=== PATIENT | female | born 1935 | race Caucasian/White ===

== ENCOUNTER 2017-02-18 10:53 | Inpatient (IN) | payer MEDICARE, BC ==
[~2017-02-18] VITALS: Ht 147.3 cm; Wt 54.7 kg
[~2017-02-18 10:53] MED LIST: ALBUAER3 IN; ASPI-498 PO; CHOL20009 PO; DILT120C20 PO; HYDR25TA4 PO; IPRASOL41 NEB; LATA0.0015 OP; NEBI5TAB2 PO; NITR0.4S29 SL; OYST500T29 PO; PERCOT PO; POT10T PO; PRE1T PO; PROP150T20 PO; RANI150I IJ; TEMA15CA PO; [UNRECOGNIZED DRUG - CODE] PO
[2017-02-18 11:37] LABS: Basophils # (auto) 0.1 uL; Basophils % (auto) 1.1 % (0.0-2.0); Eosinophils # (auto) 0.1 uL; Eosinophils % (auto) 1.5 % (0.0-7.0); Hematocrit 34.9 % (36.0-46.0); Hemoglobin 11.3 g/dL (12.2-16.2); Lymphocytes # (auto) 2.1 uL; Lymphocytes % (auto) 22.6 % (10.0-50.0); Mean Corpuscular Hemoglobin 30.8 pg (28.0-32.0); Mean Corpuscular Hgb Conc. 32.5 g/dL (32.0-36.0); Mean Corpuscular Volume 94.8 fL (80.0-100.0); Monocytes # (auto) 1.2 uL; Monocytes % (auto) 12.3 % (0.0-12.0); Neutrophils # (auto) 5.9 uL; Neutrophils % (auto) 62.5 % (37.0-80.0); Platelet Count (auto) 295 10^3/uL (140-450); Red Blood Cells 3.68 10^6/uL (4.0-5.20); Red Cell Distribution Width 13.7 % (11.8-14.3); White Blood Cell 9.5 10^3/uL (4.4-10.8)
[2017-02-18 11:50] LABS: INR 1.42 (0.9-1.15); Partial Thromboplastin Time 51.6 sec (22.64-33.71); Prothrombin Time 15.5 sec (9.37-12.3)
[2017-02-18 11:51] LABS: Alanine Aminotransferase 13 U/L (13-56); Anion Gap 8 (5-15); Aspartate Aminotransferase 11 U/L (15-37); BUN/Creatinine Ratio 15.8; Blood Urea Nitrogen 16 mg/dL (7-18); Calcium 8.9 mg/dL (8.5-10.1); Carbon Dioxide 31 mmol/L (21-32); Chloride 103 mmol/L (98-107); GFR African American 67 mL/min; GFR Non-African American 56 mL/min; Glucose 114 mg/dL (74-106); Magnesium 1.7 mg/dL (1.6-2.6); Potassium 3.6 mmol/L (3.5-5.1); Sodium 142 mmol/L (136-145)
[2017-02-18 11:56] LABS: Alkaline Phosphatase 55 U/L (45-117); Bilirubin, Total 0.5 mg/dL (0.2-1.0); Total Protein 6.5 g/dL (6.4-8.2)
[2017-02-18] MEDS ORDERED: MORPHINE SULFATE 10 MG/ML INJ 1ML SDV IV PRN (12:45)
[2017-02-18] MEDS ORDERED: OXYCODONE W/ ACETAMINOPHEN 5/325MG TABLET PO PRN (12:45)
[2017-02-18] MEDS ORDERED: DEXTROSE (50%) 50ML SYRG IV PRN (12:45)
[2017-02-18] MEDS ORDERED: LACTULOSE 20Gm/30ML SOLN PO PRN (12:45)
[2017-02-18] MEDS ORDERED: NITROGLYCERIN 0.4 MG SL TAB SL PRN (12:45)
[2017-02-18] MEDS ORDERED: ALBUTEROL SULF 2.5 MG/0.5ML(0.5%) NEB SOLN NEB PRN (12:45)
[2017-02-18] MEDS ORDERED: PANTOPRAZOLE 40 MG TAB PO SCH (12:57)
[2017-02-18] MEDS: POTASSIUM CHL 20 Meq TABLET PO SCH (13:08)
[2017-02-18] MEDS: NITROGLYCERIN 0.2MG/HR TOPICAL PATCH TD SCH (13:10)
[2017-02-18] MEDS ORDERED: DRON400T PO (13:27)
[2017-02-18] MEDS ORDERED: PRE5T PO (13:30)
[2017-02-18 14:00] VITALS: BP 154/78
[2017-02-18] MEDS ORDERED: PROPAFENONE HCL 150 MG TAB PO SCH (14:00)
[2017-02-18] MEDS ORDERED: methylPREDNISolone SOD SUCC 40 MG/ML VL IV ONE (14:00)
[2017-02-18] MEDS: cefTRIAXone 1GM/50ML D5W 50 ML IV SCH (14:03)
[2017-02-18] MEDS: AZITHROMYCIN 500MG/ 250ML 250 ML IV SCH (14:57)
[2017-02-18] MEDS ORDERED: METF-370 PO (15:23)
[2017-02-18] MEDS ORDERED: BRIN1SUS EACHEYE (15:23)
[2017-02-18] MEDS ORDERED: RIVA20TA PO (15:23)
[2017-02-18] MEDS ORDERED: LORazepam 2MG/ML-1ML VIAL IV PRN (16:30)
[2017-02-18 16:55] LABS: Cholesterol 178 mg/dL (< 200); HDL Cholesterol 47 mg/dL (40-59); LDL Cholesterol 113 mg/dL (< 100); Triglycerides 237 mg/dL (< 150)
[2017-02-18 17:00] VITALS: BP 149/80
[2017-02-18] MEDS: InsuLIN REG 1unit/0.01ml Soln (100units/ml) SC SCH ×2 (18:10→22:44)
[2017-02-18] MEDS: ACCU-CHEK COMFORT CURVE STRIP VI SCH ×2 (18:10→22:29)
[2017-02-18] MEDS: LATANOPROST 0.005 % OPTH(EYE) SOL 2.5ML EACHEYE SCH (18:11)
[2017-02-18] MEDS: RIVAROXABAN 15 MG TAB PO SCH (18:21)
[2017-02-18] MEDS: IPRATROPIUM BROM 0.5 MG/2.5ML INH SOL NEB SCH (18:26)
[2017-02-18] MEDS: ALBUTEROL SULF 2.5 MG/0.5ML(0.5%) NEB SOLN NEB SCH (18:26)
[2017-02-18] MEDS: DILTIAZEM HCL 120MG ER CAP PO SCH (18:28)
[2017-02-18] MEDS ORDERED: CARVEDILOL 3.125 MG TAB PO SCH (22:00)
[2017-02-18] MEDS ORDERED: DRONEDARONE HCL 400 MG TAB PO SCH (22:00)
[2017-02-18] MEDS ORDERED: ATORVASTATIN 20 MG TAB PO SCH (22:00)
[2017-02-18] MEDS: methylPREDNISolone SOD SUCC 40 MG/ML VL IV SCH (22:29)
[2017-02-18] MEDS: DRONEDARONE HCL 400 MG TAB PO SCH (22:30)
[2017-02-18 22:43] VITALS: BP 137/79
[2017-02-19] MEDS: ALBUTEROL SULF 2.5 MG/0.5ML(0.5%) NEB SOLN NEB SCH ×4 (00:18→18:52)
[2017-02-19] MEDS: IPRATROPIUM BROM 0.5 MG/2.5ML INH SOL NEB SCH ×4 (00:18→18:52)
[2017-02-19] MEDS: ACETAMINOPHEN 500 MG TAB PO PRN ×2 (05:26→11:22)
[2017-02-19 05:50] VITALS: BP 146/88
[2017-02-19] MEDS: ACCU-CHEK COMFORT CURVE STRIP VI SCH ×4 (06:10→22:16)
[2017-02-19] MEDS: HCTZ 25 MG TAB PO SCH (06:10)
[2017-02-19] MEDS: InsuLIN REG 1unit/0.01ml Soln (100units/ml) SC SCH ×4 (06:39→23:08)
[2017-02-19] MEDS ORDERED: RANITIDINE HCL 150 MG PO SCH (07:00)
[2017-02-19 09:00] VITALS: BP 99/63
[2017-02-19] MEDS ORDERED: FUROSEMIDE 40 MG/4 ML VIAL IV SCH (10:00)
[2017-02-19] MEDS: ASPirin 81 mg TAB PO SCH (10:00)
[2017-02-19] MEDS: NITROGLYCERIN 0.2MG/HR TOPICAL PATCH TD SCH (10:00)
[2017-02-19] MEDS: methylPREDNISolone SOD SUCC 40 MG/ML VL IV SCH ×2 (10:00→22:16)
[2017-02-19] MEDS: ENALAPRIL MALEATE 2.5 MG TAB PO SCH (10:00)
[2017-02-19] MEDS ORDERED: NEBIVOLOL HCL 5 MG PO SCH (10:00)
[2017-02-19] MEDS ORDERED: predniSONE 1 MG TAB PO SCH (10:00)
[2017-02-19] MEDS: cefTRIAXone 1GM/50ML D5W 50 ML IV SCH (10:52)
[2017-02-19] MEDS: AZITHROMYCIN 500MG/ 250ML 250 ML IV SCH (10:56)
[2017-02-19] MEDS: PANTOPRAZOLE 40 MG TAB PO SCH (11:00)
[2017-02-19] MEDS: POTASSIUM CHL 20 Meq TABLET PO SCH (11:00)
[2017-02-19] MEDS: CHOLECALCIFEROL (VITD3) 1,000 UNIT TAB PO SCH (11:01)
[2017-02-19] MEDS: CALCIUM CARB 500 MG CHEW TAB PO SCH (11:01)
[2017-02-19] MEDS: predniSONE 5 MG TAB PO SCH (11:02)
[2017-02-19] MEDS: DRONEDARONE HCL 400 MG TAB PO SCH (11:13)
[2017-02-19 13:00] VITALS: BP 142/77
[2017-02-19] MEDS ORDERED: ASPirin 81 mg TAB PO ONE (14:30)
[2017-02-19] MEDS ORDERED: methylPREDNISolone SOD SUCC 40 MG/ML VL IV ONE (14:30)
[2017-02-19 17:57] VITALS: BP 135/78
[2017-02-19] MEDS: DILTIAZEM HCL 120MG ER CAP PO SCH (17:59)
[2017-02-19] MEDS: RIVAROXABAN 15 MG TAB PO SCH (17:59)
[2017-02-19] MEDS: LATANOPROST 0.005 % OPTH(EYE) SOL 2.5ML EACHEYE SCH (18:00)
[2017-02-19 22:00] VITALS: BP 129/73
[2017-02-19] MEDS: RYTHMOL 150 MG PO SCH (22:24)
[2017-02-19] MEDS: TEMAZEPAM 15 MG CAP PO PRN (23:08)
[2017-02-20] MEDS: ALBUTEROL SULF 2.5 MG/0.5ML(0.5%) NEB SOLN NEB SCH ×2 (01:15→06:38)
[2017-02-20] MEDS: IPRATROPIUM BROM 0.5 MG/2.5ML INH SOL NEB SCH ×4 (01:15→20:02)
[2017-02-20 05:00] VITALS: BP 144/72
[2017-02-20] MEDS: RYTHMOL 150 MG PO SCH (06:01)
[2017-02-20] MEDS: ACCU-CHEK COMFORT CURVE STRIP VI SCH ×4 (06:02→22:19)
[2017-02-20] MEDS: InsuLIN REG 1unit/0.01ml Soln (100units/ml) SC SCH ×2 (06:02→11:30)
[2017-02-20] MEDS: HCTZ 25 MG TAB PO SCH (06:03)
[2017-02-20 06:23] LABS: Basophils # (auto) 0 uL; Basophils % (auto) 0.2 % (0.0-2.0); Eosinophils # (auto) 0 uL; Hematocrit 33.8 % (36.0-46.0); Hemoglobin 11.2 g/dL (12.2-16.2); Lymphocytes # (auto) 0.7 uL; Mean Corpuscular Volume 93.9 fL (80.0-100.0); Monocytes # (auto) 0.2 uL; Monocytes % (auto) 1.5 % (0.0-12.0); Neutrophils % (auto) 91.3 % (37.0-80.0); Platelet Count (auto) 313 10^3/uL (140-450); Red Cell Distribution Width 13.4 % (11.8-14.3); White Blood Cell 9.9 10^3/uL (4.4-10.8)
[2017-02-20 06:35] LABS: Calcium 9.2 mg/dL (8.5-10.1); Potassium 4.1 mmol/L (3.5-5.1)
[2017-02-20 06:38] LABS: Bilirubin, Total 0.3 mg/dL (0.2-1.0); Total Protein 6.4 g/dL (6.4-8.2)
[2017-02-20 08:10] VITALS: BP 136/83
[2017-02-20 09:00] VITALS: BP 136/83
[2017-02-20] MEDS: cefTRIAXone 1GM/50ML D5W 50 ML IV SCH (09:54)
[2017-02-20] MEDS: CALCIUM CARB 500 MG CHEW TAB PO SCH (09:59)
[2017-02-20] MEDS: CHOLECALCIFEROL (VITD3) 1,000 UNIT TAB PO SCH (09:59)
[2017-02-20] MEDS: POTASSIUM CHL 20 Meq TABLET PO SCH (10:00)
[2017-02-20] MEDS: ENALAPRIL MALEATE 2.5 MG TAB PO SCH (10:00)
[2017-02-20] MEDS: methylPREDNISolone SOD SUCC 40 MG/ML VL IV SCH (10:00)
[2017-02-20] MEDS: ASPirin 81 mg TAB PO SCH (10:01)
[2017-02-20] MEDS: PANTOPRAZOLE 40 MG TAB PO SCH (10:22)
[2017-02-20] MEDS: predniSONE 5 MG TAB PO SCH (10:22)
[2017-02-20 11:21] LABS: Urine Bacteria NONE SEEN /hpf (None Seen); Urine Blood Negative /uL (Negative); Urine Specific Gravity 1.016 (1.001-1.035); Urine WBC 4 /hpf (0 - 5)
[2017-02-20 11:28] LABS: Folate (Folic Acid) > 24.00 ng/mL (5.38-24)
[2017-02-20] MEDS: metFORMIN HYDROCHLORIDE 500 MG TAB PO SCH (12:56)
[2017-02-20] MEDS: NEBIVOLOL HCL 5 MG PO SCH (12:57)
[2017-02-20] MEDS: PROPAFENONE HCL 150 MG TAB PO SCH ×2 (14:31→22:19)
[2017-02-20 17:00] VITALS: BP 126/76
[2017-02-20] MEDS ORDERED: SODIUM CHLORIDE 0.9% 1,000 ML IV SCH (17:30)
[2017-02-20] MEDS ORDERED: LORazepam 2MG/ML-1ML VIAL IV PRN (17:45)
[2017-02-20] MEDS: LATANOPROST 0.005 % OPTH(EYE) SOL 2.5ML EACHEYE SCH (18:22)
[2017-02-20] MEDS: DILTIAZEM HCL 120MG ER CAP PO SCH (18:24)
[2017-02-20] MEDS: RIVAROXABAN 15 MG TAB PO SCH (18:24)
[2017-02-20 20:00] VITALS: BP 158/78
[2017-02-20 21:30] VITALS: BP 158/78
[2017-02-20] MEDS: TEMAZEPAM 15 MG CAP PO PRN (22:19)
[2017-02-21] VITALS (8 sets, daily range): BP systolic 127–156; BP diastolic 62–76
[2017-02-21] MEDS: IPRATROPIUM BROM 0.5 MG/2.5ML INH SOL NEB SCH ×4 (01:01→18:34)
[2017-02-21] MEDS: HCTZ 25 MG TAB PO SCH (06:12)
[2017-02-21] MEDS: PROPAFENONE HCL 150 MG TAB PO SCH ×3 (06:12→21:51)
[2017-02-21] MEDS: ACCU-CHEK COMFORT CURVE STRIP VI SCH ×4 (06:31→21:51)
[2017-02-21] MEDS: cefTRIAXone 1GM/50ML D5W 50 ML IV SCH (09:49)
[2017-02-21] MEDS: NEBIVOLOL HCL 5 MG PO SCH (10:00)
[2017-02-21] MEDS: ENALAPRIL MALEATE 2.5 MG TAB PO SCH (10:00)
[2017-02-21] MEDS: POTASSIUM CHL 20 Meq TABLET PO SCH (11:16)
[2017-02-21] MEDS: CHOLECALCIFEROL (VITD3) 1,000 UNIT TAB PO SCH (11:16)
[2017-02-21] MEDS: metFORMIN HYDROCHLORIDE 500 MG TAB PO SCH (11:17)
[2017-02-21] MEDS: CALCIUM CARB 500 MG CHEW TAB PO SCH (11:18)
[2017-02-21] MEDS: PANTOPRAZOLE 40 MG TAB PO SCH (11:19)
[2017-02-21] MEDS: predniSONE 5 MG TAB PO SCH (11:19)
[2017-02-21] MEDS: LATANOPROST 0.005 % OPTH(EYE) SOL 2.5ML EACHEYE SCH (19:21)
[2017-02-21] MEDS: DILTIAZEM HCL 120MG ER CAP PO SCH (19:22)
[2017-02-21] MEDS: RIVAROXABAN 15 MG TAB PO SCH (19:23)
[2017-02-21] MEDS ORDERED: ATORVASTATIN 20 MG TAB PO SCH (22:00)
[2017-02-21] MEDS: TEMAZEPAM 15 MG CAP PO PRN (22:57)
[2017-02-22] MEDS: IPRATROPIUM BROM 0.5 MG/2.5ML INH SOL NEB SCH ×3 (00:18→12:00)
[2017-02-22 05:17] VITALS: BP 151/81
[2017-02-22] MEDS: ACCU-CHEK COMFORT CURVE STRIP VI SCH ×3 (06:24→17:00)
[2017-02-22] MEDS: HCTZ 25 MG TAB PO SCH (06:24)
[2017-02-22] MEDS: PROPAFENONE HCL 150 MG TAB PO SCH ×2 (06:24→17:56)
[2017-02-22] MEDS ORDERED: FLUMAZENIL 0.1 MG/ML INJ 10ML MDV IV ONE (07:24)
[2017-02-22] MEDS ORDERED: MIDAZOLAM HCL 1MG/1ML-2 ML VIAL ONE (07:24)
[2017-02-22] MEDS ORDERED: fentaNYL CITRATE 100 MCG/2 ML VL ONE (07:24)
[2017-02-22] MEDS ORDERED: NALOXONE HCL 0.4 MG/ML VIAL ONE (07:24)
[2017-02-22] MEDS ORDERED: MIDAZOLAM HCL 1MG/1ML-2 ML VIAL IV ONE (07:45)
[2017-02-22] MEDS ORDERED: LIDOCAINE VISCOUS 2% 15ML UD MT ONE (07:45)
[2017-02-22] MEDS ORDERED: fentaNYL CITRATE 100 MCG/2 ML VL IV ONE (07:45)
[2017-02-22] MEDS ORDERED: BENZOCAINE (DENTAL) 20 % SPRAY 60ML MT ONE ×4 (07:45→10:00)
[2017-02-22] MEDS ORDERED: LIDOCAINE VISCOUS 2% 15ML UD ONE (08:00)
[2017-02-22 08:30] VITALS: BP 157/81
[2017-02-22] MEDS: ENALAPRIL MALEATE 2.5 MG TAB PO SCH (10:00)
[2017-02-22] MEDS ORDERED: ONDANSETRON HCL 4 MG/2 ML VIAL ONE (10:26)
[2017-02-22] MEDS ORDERED: ONDANSETRON HCL 4 MG/2 ML VIAL IV ONE (10:30)
[2017-02-22] MEDS: cefTRIAXone 1GM/50ML D5W 50 ML IV SCH (12:37)
[2017-02-22] MEDS: predniSONE 5 MG TAB PO SCH (12:39)
[2017-02-22] MEDS: CALCIUM CARB 500 MG CHEW TAB PO SCH (12:39)
[2017-02-22] MEDS: PANTOPRAZOLE 40 MG TAB PO SCH (12:39)
[2017-02-22] MEDS: metFORMIN HYDROCHLORIDE 500 MG TAB PO SCH (12:40)
[2017-02-22] MEDS: POTASSIUM CHL 20 Meq TABLET PO SCH (12:41)
[2017-02-22] MEDS: CHOLECALCIFEROL (VITD3) 1,000 UNIT TAB PO SCH (12:41)
[2017-02-22] MEDS: NEBIVOLOL HCL 5 MG PO SCH (12:46)
[2017-02-22 13:09] VITALS: BP 166/79
[2017-02-22 17:00] VITALS: BP 156/76
[2017-02-22 17:34] VITALS: BP 156/76
[2017-02-22] MEDS: LATANOPROST 0.005 % OPTH(EYE) SOL 2.5ML EACHEYE SCH (17:54)
[2017-02-22] MEDS: RIVAROXABAN 15 MG TAB PO SCH (17:55)
[2017-02-22] MEDS: DILTIAZEM HCL 120MG ER CAP PO SCH (17:55)
== END 2017-02-22 19:41 | disposition home or self-care (01) | DRG 64 ==
LOC: ER 10:53 → TELE 10:54 → TELE-CENTR 13:56
PROVIDERS: ADMIT Internal Medicine; ATTEND Internal Medicine
PROC: B24BZZ4 Ultrasonography of Heart with Aorta, Transesophageal (ICD-10-PCS; principal; 2017-02-22)
DX: I63.9 Cerebral infarction, unspecified (principal); I50.33 Acute on chronic diastolic (congestive) heart failure; J96.10 Chronic respiratory failure, unspecified whether with hypoxia or hypercapnia; D68.69 Other thrombophilia; E11.22 Type 2 diabetes mellitus with diabetic chronic kidney disease; N18.3 Chronic kidney disease, stage 3 (moderate); G81.94 Hemiplegia, unspecified affecting left nondominant side; I07.1 Rheumatic tricuspid insufficiency; J44.1 Chronic obstructive pulmonary disease with (acute) exacerbation; I13.0 Hypertensive heart and chronic kidney disease with heart failure and stage 1 through stage 4 chronic kidney disease, or unspecified chronic kidney disease; I48.0 Paroxysmal atrial fibrillation; M31.5 Giant cell arteritis with polymyalgia rheumatica; D63.8 Anemia in other chronic diseases classified elsewhere; R25.1 Tremor, unspecified; R27.0 Ataxia, unspecified; I11.0 Hypertensive heart disease with heart failure; E78.5 Hyperlipidemia, unspecified; I25.10 Atherosclerotic heart disease of native coronary artery without angina pectoris; I34.0 Nonrheumatic mitral (valve) insufficiency; I35.1 Nonrheumatic aortic (valve) insufficiency; I83.90 Asymptomatic varicose veins of unspecified lower extremity; I16.0 Hypertensive urgency; R70.0 Elevated erythrocyte sedimentation rate; R79.82 Elevated C-reactive protein (CRP); R29.810 Facial weakness; R47.81 Slurred speech; M54.30 Sciatica, unspecified side; Z79.01 Long term (current) use of anticoagulants; Z80.0 Family history of malignant neoplasm of digestive organs; Z80.3 Family history of malignant neoplasm of breast; Z85.038 Personal history of other malignant neoplasm of large intestine; Z85.828 Personal history of other malignant neoplasm of skin; Z95.5 Presence of coronary angioplasty implant and graft; Z88.1 Allergy status to other antibiotic agents; Z88.2 Allergy status to sulfonamides; Z88.8 Allergy status to other drugs, medicaments and biological substances; Z90.49 Acquired absence of other specified parts of digestive tract; Z90.710 Acquired absence of both cervix and uterus; Z87.891 Personal history of nicotine dependence; Z86.73 Personal history of transient ischemic attack (TIA), and cerebral infarction without residual deficits
CPT/HCPCS: 36415; 70450; 70551; 71010; 80053; 80061; 81001; 82550; 82607; 82746; 82962; 83036; 83735; 83880; 84443; 84484; 85025; 85610; 85652; 85730; 86141; 93005; 93306; 93312; 93886; 94640; 97116; 97163; 97530; 99152; 99153; J0696; J1815; J2250; J2405

== ENCOUNTER 2017-04-25 16:23 | Inpatient (IN) | payer MEDICARE, OTHER ==
[~2017-04-25] VITALS: Ht 147.3 cm; Wt 50.8 kg
[~2017-04-25 16:23] MED LIST changes: -ASPI-498 PO; +BRIN1SUS EACHEYE; +METF-370 PO; -NEBI5TAB2 PO; -PERCOT PO; -PRE1T PO; +PRE5T PO; -PROP150T20 PO; +PROP1CAP PO; +RANI150C11 PO; -RANI150I IJ; +RIVA20TA PO
[2017-04-25 17:06] VITALS: BP 133/74
[2017-04-25] MEDS ORDERED: ONDANSETRON HCL 4 MG/2 ML VIAL IV PRN (18:00)
[2017-04-25] MEDS ORDERED: cefTRIAXone 1GM/10ml IVPUSH 10 ML IV ONE (18:00)
[2017-04-25] MEDS ORDERED: MORPHINE SULF INJ 2 MG/ML SYRINGE 1ML IV PRN (18:00)
[2017-04-25] MEDS ORDERED: ALBUTEROL SULF 2.5 MG/0.5ML(0.5%) NEB SOLN NEB PRN (18:00)
[2017-04-25] MEDS: predniSONE 5 MG TAB PO ONE ×2 (18:38→18:41)
[2017-04-25] MEDS: SODIUM CHLORIDE 0.9% 1,000 ML IV SCH (18:38)
[2017-04-25] MEDS: HYDROcodone-ACET 5/325MG TAB PO PRN (18:41)
[2017-04-25 18:58] LABS: Basophils # (auto) 0.1 uL; Basophils % (auto) 0.7 % (0.0-2.0); Eosinophils # (auto) 0 uL; Eosinophils % (auto) 0.1 % (0.0-7.0); Hematocrit 34.7 % (36.0-46.0); Hemoglobin 10.9 g/dL (12.2-16.2); Lymphocytes # (auto) 1.7 uL; Lymphocytes % (auto) 14.8 % (10.0-50.0); Mean Corpuscular Hemoglobin 30.3 pg (28.0-32.0); Mean Corpuscular Hgb Conc. 31.4 g/dL (32.0-36.0); Mean Corpuscular Volume 96.7 fL (80.0-100.0); Monocytes # (auto) 0.7 uL; Monocytes % (auto) 6.3 % (0.0-12.0); Neutrophils # (auto) 9.1 uL; Neutrophils % (auto) 78.1 % (37.0-80.0); Platelet Count (auto) 346 10^3/uL (140-450); Red Blood Cells 3.59 10^6/uL (4.0-5.20); Red Cell Distribution Width 15.3 % (11.8-14.3); White Blood Cell 11.7 10^3/uL (4.4-10.8)
[2017-04-25] MEDS ORDERED: ASPI81TA27 PO (19:00)
[2017-04-25 19:10] LABS: INR 0.98 (0.9-1.15); Partial Thromboplastin Time 25.2 sec (22.64-33.71); Prothrombin Time 10.7 sec (9.37-12.3)
[2017-04-25 19:27] LABS: Bilirubin, Total 0.3 mg/dL (0.2-1.0); Calcium 9.1 mg/dL (8.5-10.1); Potassium 3.7 mmol/L (3.5-5.1)
[2017-04-25 19:28] LABS: Albumin 3.2 g/dL (3.4-5.0); Total Protein 6.2 g/dL (6.4-8.2)
[2017-04-25 20:00] VITALS: BP 152/84
[2017-04-25] MEDS: FAMOTIDINE 20 MG TAB PO SCH (21:23)
[2017-04-25] MEDS: LATANOPROST 0.005 % OPTH(EYE) SOL 2.5ML EACHEYE SCH (21:23)
[2017-04-25] MEDS: AZOPT OP SCH (21:24)
[2017-04-25] MEDS: PROPAFENONE 150 MG PO SCH (21:25)
[2017-04-25] MEDS: TEMAZEPAM 15 MG CAP PO PRN (21:27)
[2017-04-25] MEDS: CLINDAMYCIN 600MG IV 50 ML IV SCH (21:29)
[2017-04-25 22:00] VITALS: BP 152/84
[2017-04-26 05:00] VITALS: BP 144/76
[2017-04-26] MEDS: CLINDAMYCIN 600MG IV 50 ML IV SCH ×3 (05:30→21:32)
[2017-04-26] MEDS: PROPAFENONE 150 MG PO SCH ×3 (05:31→21:32)
[2017-04-26] MEDS: AZOPT OP SCH ×4 (05:31→22:00)
[2017-04-26 07:23] LABS: Urine Bacteria NONE SEEN /hpf (None Seen); Urine Blood Negative /uL (Negative); Urine Hyaline Cast FEW /lpf (0 - 2); Urine Mucus FEW (None Seen); Urine Specific Gravity 1.023 (1.001-1.035); Urine WBC 3 /hpf (0 - 5)
[2017-04-26 08:00] VITALS: BP 110/59
[2017-04-26] MEDS: predniSONE 5 MG TAB PO SCH (09:41)
[2017-04-26] MEDS: cefTRIAXone 1GM/10ml IVPUSH 10 ML IV SCH (09:41)
[2017-04-26] MEDS: FAMOTIDINE 20 MG TAB PO SCH ×2 (09:41→21:32)
[2017-04-26] MEDS ORDERED: NALOXONE HCL 0.4 MG/ML VIAL IV PRN (10:30)
[2017-04-26] MEDS ORDERED: ONDANSETRON HCL 4 MG/2 ML VIAL IV ONE (10:30)
[2017-04-26] MEDS ORDERED: HYDROmorphone HCL 2 MG/ML VL IV PRN (10:30)
[2017-04-26] MEDS ORDERED: LIDOCAINE 1% HCL (LOCAL ANESTH.) INJ 20ML MDV ONE (10:34)
[2017-04-26] MEDS: SODIUM CHLORIDE 0.9% 1,000 ML IV SCH (10:40)
[2017-04-26] MEDS ORDERED: MIDAZOLAM HCL 1MG/1ML-2 ML VIAL ONE (10:40)
[2017-04-26] MEDS ORDERED: METOCLOPRAMIDE HCL 5MG/ml INJ 2ml VIAL ONE (10:41)
[2017-04-26] MEDS ORDERED: LIDOCAINE HCL 2 %PF INJ 10ML AMP IJ ONE (10:45)
[2017-04-26] MEDS ORDERED: PROPOFOL 10 MG/ML 20 ML IV ONE (10:45)
[2017-04-26] MEDS ORDERED: fentaNYL CITRATE 100 MCG/2 ML VL ONE (10:50)
[2017-04-26] MEDS ORDERED: KETAMINE HCL 1 ML ONE (10:55)
[2017-04-26] MEDS ORDERED: HYDROCORTISONE SOD SUCC 100 MG/2ML INJ VIAL ONE (10:57)
[2017-04-26 16:54] VITALS: BP 105/55
[2017-04-26] MEDS: LATANOPROST 0.005 % OPTH(EYE) SOL 2.5ML EACHEYE SCH ×2 (20:00→21:46)
[2017-04-26 20:52] VITALS: BP 105/58
[2017-04-26] MEDS: TEMAZEPAM 15 MG CAP PO PRN (21:46)
[2017-04-26 22:00] VITALS: BP 126/70
[2017-04-26] MEDS ORDERED: MEGESTROL ACETATE 20 MG TAB PO SCH (22:00)
[2017-04-27] MEDS: SODIUM CHLORIDE 0.9% 1,000 ML IV SCH ×2 (03:20→20:00)
[2017-04-27 04:59] VITALS: BP 138/81
[2017-04-27] MEDS: CLINDAMYCIN 600MG IV 50 ML IV SCH ×3 (06:25→21:02)
[2017-04-27] MEDS: PROPAFENONE 150 MG PO SCH ×3 (06:25→21:04)
[2017-04-27] MEDS: AZOPT OP SCH ×2 (06:25→14:20)
[2017-04-27] MEDS: cefTRIAXone 1GM/10ml IVPUSH 10 ML IV SCH (08:38)
[2017-04-27 09:00] VITALS: BP 150/80
[2017-04-27] MEDS: FAMOTIDINE 20 MG TAB PO SCH ×2 (09:52→21:02)
[2017-04-27] MEDS: predniSONE 5 MG TAB PO SCH (09:52)
[2017-04-27 13:00] VITALS: BP 153/78
[2017-04-27 17:00] VITALS: BP 145/80
[2017-04-27] MEDS: HYDROcodone-ACET 5/325MG TAB PO PRN (21:02)
[2017-04-27] MEDS: TEMAZEPAM 15 MG CAP PO PRN (21:03)
[2017-04-27 22:19] VITALS: BP 163/95
[2017-04-28] MEDS: AZOPT OP SCH ×3 (04:27→21:46)
[2017-04-28] MEDS: CLINDAMYCIN 600MG IV 50 ML IV SCH ×3 (04:27→21:46)
[2017-04-28] MEDS: PROPAFENONE 150 MG PO SCH ×3 (04:28→21:46)
[2017-04-28 05:00] VITALS: BP 156/77
[2017-04-28 08:00] VITALS: BP 144/77
[2017-04-28 09:00] VITALS: BP 144/77
[2017-04-28] MEDS: predniSONE 5 MG TAB PO SCH (09:18)
[2017-04-28] MEDS: FAMOTIDINE 20 MG TAB PO SCH ×2 (09:18→21:46)
[2017-04-28] MEDS: cefTRIAXone 1GM/10ml IVPUSH 10 ML IV SCH (09:18)
[2017-04-28] MEDS: SODIUM CHLORIDE 0.9% 1,000 ML IV SCH (12:40)
[2017-04-28 13:00] VITALS: BP 171/84
[2017-04-28 17:00] VITALS: BP 146/86
[2017-04-28] MEDS: LATANOPROST 0.005 % OPTH(EYE) SOL 2.5ML EACHEYE SCH (21:45)
[2017-04-28] MEDS: TEMAZEPAM 15 MG CAP PO PRN (21:47)
[2017-04-28 22:00] VITALS: BP 144/77
[2017-04-29] VITALS (8 sets, daily range): BP systolic 133–174; BP diastolic 70–82
[2017-04-29] MEDS: SODIUM CHLORIDE 0.9% 1,000 ML IV SCH ×2 (04:58→22:00)
[2017-04-29] MEDS: AZOPT OP SCH ×3 (05:03→22:00)
[2017-04-29] MEDS: PROPAFENONE 150 MG PO SCH ×3 (05:03→22:17)
[2017-04-29] MEDS: CLINDAMYCIN 600MG IV 50 ML IV SCH (05:03)
[2017-04-29] MEDS: HYDROcodone-ACET 5/325MG TAB PO PRN (05:04)
[2017-04-29] MEDS: FAMOTIDINE 20 MG TAB PO SCH ×2 (09:22→22:17)
[2017-04-29] MEDS: cefTRIAXone 1GM/10ml IVPUSH 10 ML IV SCH (09:22)
[2017-04-29] MEDS: predniSONE 5 MG TAB PO SCH (09:22)
[2017-04-29] MEDS: AMOXICILLIN TRIHYDRATE 250 MG CAP PO SCH ×2 (16:33→22:17)
[2017-04-29] MEDS: TEMAZEPAM 15 MG CAP PO PRN (22:17)
[2017-04-29] MEDS: LATANOPROST 0.005 % OPTH(EYE) SOL 2.5ML EACHEYE SCH (22:17)
[2017-04-30] MEDS: AZOPT OP SCH ×3 (05:44→22:00)
[2017-04-30] MEDS: PROPAFENONE 150 MG PO SCH ×3 (05:44→22:00)
[2017-04-30 06:00] VITALS: BP_SYST 136; BP_SYST 157; BP_DIAS 75; BP_DIAS 85
[2017-04-30 09:00] VITALS: BP 123/76
[2017-04-30] MEDS: AMOXICILLIN TRIHYDRATE 250 MG CAP PO SCH ×2 (10:25→22:08)
[2017-04-30] MEDS: cefTRIAXone 1GM/10ml IVPUSH 10 ML IV SCH (10:25)
[2017-04-30] MEDS: FAMOTIDINE 20 MG TAB PO SCH ×2 (10:26→22:08)
[2017-04-30] MEDS: predniSONE 5 MG TAB PO SCH (10:26)
[2017-04-30 13:00] VITALS: BP 148/81
[2017-04-30] MEDS: SODIUM CHLORIDE 0.9% 1,000 ML IV SCH (15:19)
[2017-04-30 16:43] VITALS: BP 137/73
[2017-04-30 20:00] VITALS: BP 144/71
[2017-04-30] MEDS: LATANOPROST 0.005 % OPTH(EYE) SOL 2.5ML EACHEYE SCH (22:00)
[2017-04-30 22:04] VITALS: BP_SYST 139; BP_SYST 144; BP_DIAS 71; BP_DIAS 74
[2017-04-30] MEDS: TEMAZEPAM 15 MG CAP PO PRN (22:08)
[2017-05-01] VITALS (7 sets, daily range): BP systolic 127–160; BP diastolic 71–88
[2017-05-01] MEDS: AZOPT OP SCH ×4 (05:52→22:08)
[2017-05-01] MEDS: PROPAFENONE 150 MG PO SCH ×3 (06:00→21:42)
[2017-05-01] MEDS: cefTRIAXone 1GM/10ml IVPUSH 10 ML IV SCH (09:38)
[2017-05-01] MEDS: SODIUM CHLORIDE 0.9% 1,000 ML IV SCH ×2 (09:46→23:45)
[2017-05-01] MEDS: HYDROcodone-ACET 5/325MG TAB PO PRN ×2 (09:47→17:47)
[2017-05-01] MEDS: AMOXICILLIN TRIHYDRATE 250 MG CAP PO SCH ×2 (09:47→21:42)
[2017-05-01] MEDS: FAMOTIDINE 20 MG TAB PO SCH ×2 (09:47→21:42)
[2017-05-01] MEDS: predniSONE 5 MG TAB PO SCH (09:47)
[2017-05-01 13:32] LABS: Basophils # (auto) 0 uL; Basophils % (auto) 0.4 % (0.0-2.0); Eosinophils # (auto) 0 uL; Eosinophils % (auto) 0.2 % (0.0-7.0); Hematocrit 31.9 % (36.0-46.0); Hemoglobin 10.2 g/dL (12.2-16.2); Lymphocytes # (auto) 1.2 uL; Lymphocytes % (auto) 10.8 % (10.0-50.0); Mean Corpuscular Hemoglobin 30.6 pg (28.0-32.0); Mean Corpuscular Volume 95.7 fL (80.0-100.0); Monocytes % (auto) 9.4 % (0.0-12.0); Neutrophils # (auto) 8.6 uL; Neutrophils % (auto) 79.2 % (37.0-80.0); Platelet Count (auto) 233 10^3/uL (140-450); Red Blood Cells 3.34 10^6/uL (4.0-5.20); Red Cell Distribution Width 14.9 % (11.8-14.3); White Blood Cell 10.8 10^3/uL (4.4-10.8)
[2017-05-01 13:43] LABS: Potassium 3.1 mmol/L (3.5-5.1)
[2017-05-01 13:45] LABS: BUN/Creatinine Ratio 15.4; Calcium 8.7 mg/dL (8.5-10.1)
[2017-05-01] MEDS: TEMAZEPAM 15 MG CAP PO PRN (21:43)
[2017-05-01] MEDS: LATANOPROST 0.005 % OPTH(EYE) SOL 2.5ML EACHEYE SCH (22:08)
[2017-05-02 05:00] VITALS: BP 147/83
[2017-05-02] MEDS: AZOPT OP SCH ×2 (06:00→15:03)
[2017-05-02] MEDS: PROPAFENONE 150 MG PO SCH ×2 (06:02→14:53)
[2017-05-02 07:55] VITALS: BP 143/66
[2017-05-02] MEDS: predniSONE 5 MG TAB PO SCH (10:35)
[2017-05-02] MEDS: AMOXICILLIN TRIHYDRATE 250 MG CAP PO SCH (10:35)
[2017-05-02] MEDS: FAMOTIDINE 20 MG TAB PO SCH (10:35)
[2017-05-02 11:06] VITALS: BP 143/78
[2017-05-02 12:00] VITALS: BP 143/72
[2017-05-02 14:38] VITALS: BP 143/72
[2017-05-02] MEDS: SODIUM CHLORIDE 0.9% 1,000 ML IV SCH (15:03)
[2017-05-02 17:00] VITALS: BP 160/82
== END 2017-05-02 18:35 | disposition home health service (06) | DRG 574 ==
LOC: EAST 16:23
PROVIDERS: ADMIT Internal Medicine; ATTEND Internal Medicine
PROC: 0JDN0ZZ Extraction of Right Lower Leg Subcutaneous Tissue and Fascia, Open Approach (ICD-10-PCS; 2017-04-26)
PROC: 0HRKXK3 Replacement of Right Lower Leg Skin with Nonautologous Tissue Substitute, Full Thickness, External Approach (ICD-10-PCS; principal; 2017-04-26 10:42)
DX: L97.219 Non-pressure chronic ulcer of right calf with unspecified severity (principal); J96.10 Chronic respiratory failure, unspecified whether with hypoxia or hypercapnia; E11.22 Type 2 diabetes mellitus with diabetic chronic kidney disease; I13.0 Hypertensive heart and chronic kidney disease with heart failure and stage 1 through stage 4 chronic kidney disease, or unspecified chronic kidney disease; I50.32 Chronic diastolic (congestive) heart failure; E11.622 Type 2 diabetes mellitus with other skin ulcer; I48.91 Unspecified atrial fibrillation; J44.9 Chronic obstructive pulmonary disease, unspecified; M31.6 Other giant cell arteritis; N18.3 Chronic kidney disease, stage 3 (moderate); Z86.73 Personal history of transient ischemic attack (TIA), and cerebral infarction without residual deficits; Z88.1 Allergy status to other antibiotic agents
CPT/HCPCS: 36415; 80048; 80053; 81001; 82962; 85025; 85610; 85730; 87077; 87081; 87186; 87205; 93005; J2001; J2250; J2704; J3490; Q4131

== ENCOUNTER 2017-05-09 16:52 | Inpatient (IN) | payer MEDICARE, BC ==
[~2017-05-09] VITALS: Ht 148.6 cm; Wt 47.8 kg
[~2017-05-09 16:52] MED LIST changes: +ASPI81TA27 PO; -RIVA20TA PO
[2017-05-09 17:31] VITALS: BP 149/82
[2017-05-09] MEDS ORDERED: HYDROcodone-ACET 5/325MG TAB PO PRN (18:30)
[2017-05-09] MEDS ORDERED: ONDANSETRON HCL 4 MG/2 ML VIAL IV PRN (18:30)
[2017-05-09] MEDS ORDERED: DOCUSATE SOD 100 MG CAP PO PRN (18:30)
[2017-05-09] MEDS ORDERED: MORPHINE SULFATE 10 MG/ML INJ 1ML SDV IV PRN ×2 (18:30)
[2017-05-09] MEDS ORDERED: NITROGLYCERIN 0.4 MG SL TAB SL PRN (18:30)
[2017-05-09] MEDS ORDERED: ACETAMINOPHEN 325 MG TAB PO PRN (18:30)
[2017-05-09] MEDS ORDERED: DEXTROSE (50%) 50ML SYRG IV PRN (18:45)
[2017-05-09] MEDS ORDERED: DILTIAZEM HCL 120MG ER CAP PO ONE (19:15)
[2017-05-09] MEDS ORDERED: ASPirin-EC 81 mg tab PO ONE (19:15)
[2017-05-09 19:16] LABS: Hematocrit 34.4 % (36.0-46.0); Hemoglobin 10.8 g/dL (12.2-16.2); Mean Corpuscular Hemoglobin 29.5 pg (28.0-32.0); Mean Corpuscular Hgb Conc. 31.4 g/dL (32.0-36.0); Platelet Count (auto) 422 10^3/uL (140-450); Red Blood Cells 3.66 10^6/uL (4.0-5.20); White Blood Cell 7.6 10^3/uL (4.4-10.8)
[2017-05-09 19:18] LABS: Basophils % (manual) 0 (0.0-2.0); Blast Cells 0; Eosinophils % (manual) 0 (0-7); Metamyelocytes % 0; Myelocytes % 0; Promyelocytes % 0
[2017-05-09 19:24] VITALS: BP 149/82
[2017-05-09 19:33] LABS: Alanine Aminotransferase 12 U/L (13-56); Albumin 2.8 g/dL (3.4-5.0); Anion Gap 8 (5-15); Aspartate Aminotransferase 10 U/L (15-37); Blood Urea Nitrogen 10 mg/dL (7-18); Calcium 9.1 mg/dL (8.5-10.1); Carbon Dioxide 34 mmol/L (21-32); Chloride 94 mmol/L (98-107); GFR African American 76 mL/min; GFR Non-African American 63 mL/min; Glucose 133 mg/dL (74-106); Potassium 3.9 mmol/L (3.5-5.1); Sodium 136 mmol/L (136-145)
[2017-05-09 19:38] LABS: Alkaline Phosphatase 68 U/L (45-117); Bilirubin, Total 0.2 mg/dL (0.2-1.0); Total Protein 6.5 g/dL (6.4-8.2)
[2017-05-09 20:31] LABS: Band Neutrophils % (manual) 2; Lymphocytes % (manual) 23 (10.0-50.0); Monocytes % (manual) 7 (0-12)
[2017-05-09 20:32] LABS: Reactive Lymphocytes 2
[2017-05-09] MEDS: ACCU-CHEK COMFORT CURVE STRIP VI SCH (21:44)
[2017-05-09] MEDS: InsuLIN REG 1unit/0.01ml Soln (100units/ml) SC SCH (21:44)
[2017-05-09] MEDS: PROPAFENONE HCL 150 MG TAB PO SCH (21:53)
[2017-05-09] MEDS: FAMOTIDINE 20 MG TAB PO SCH (21:55)
[2017-05-09] MEDS: ASCORBIC ACID 500 MG TAB PO SCH (21:55)
[2017-05-09] MEDS: TEMAZEPAM 15 MG CAP PO PRN (21:55)
[2017-05-09] MEDS: CALCIUM CARB 500 MG CHEW TAB PO SCH (21:55)
[2017-05-09 22:00] VITALS: BP 137/72
[2017-05-09] MEDS: SODIUM CHLOR 0.9% PF (SALINE LOCK) 10ML VIAL IV SCH (22:00)
[2017-05-09] MEDS: AZOPT 1% OP SCH (22:00)
[2017-05-09] MEDS: LATANOPROST 0.005 % OPTH(EYE) SOL 2.5ML EACHEYE SCH (22:00)
[2017-05-09] MEDS: EYE OP SCH (22:00)
[2017-05-09 22:43] LABS: Urine Bacteria NONE SEEN /hpf (None Seen); Urine Blood Negative /uL (Negative); Urine Hyaline Cast FEW /lpf (0 - 2); Urine Mucus FEW (None Seen); Urine Specific Gravity 1.017 (1.001-1.035); Urine WBC 3 /hpf (0 - 5)
[2017-05-10] MEDS: IPRATROPIUM BROM 0.5 MG/2.5ML INH SOL NEB SCH ×4 (00:52→19:25)
[2017-05-10] MEDS: ALBUTEROL SULF 2.5 MG/0.5ML(0.5%) NEB SOLN NEB SCH ×4 (00:53→19:25)
[2017-05-10] MEDS: AZOPT 1% OP SCH ×3 (05:10→22:00)
[2017-05-10] MEDS: EYE OP SCH ×3 (05:10→22:00)
[2017-05-10 05:44] VITALS: BP 135/63
[2017-05-10] MEDS: ACCU-CHEK COMFORT CURVE STRIP VI SCH ×4 (06:06→22:00)
[2017-05-10] MEDS: InsuLIN REG 1unit/0.01ml Soln (100units/ml) SC SCH ×4 (06:06→22:00)
[2017-05-10] MEDS: PROPAFENONE HCL 150 MG TAB PO SCH ×3 (06:07→22:01)
[2017-05-10 06:30] LABS: Hematocrit 32.5 % (36.0-46.0); Hemoglobin 10.5 g/dL (12.2-16.2); Mean Corpuscular Hemoglobin 30.3 pg (28.0-32.0); Mean Corpuscular Hgb Conc. 32.3 g/dL (32.0-36.0); Mean Corpuscular Volume 93.8 fL (80.0-100.0); Platelet Count (auto) 435 10^3/uL (140-450); Red Blood Cells 3.47 10^6/uL (4.0-5.20); Red Cell Distribution Width 14.7 % (11.8-14.3); White Blood Cell 7.6 10^3/uL (4.4-10.8)
[2017-05-10 06:53] LABS: Albumin 2.8 g/dL (3.4-5.0); BUN/Creatinine Ratio 11.3; Band Neutrophils % (manual) 0; Basophils % (manual) 0 (0.0-2.0); Bilirubin, Total 0.3 mg/dL (0.2-1.0); Blast Cells 0; Metamyelocytes % 0; Myelocytes % 0; Potassium 3.2 mmol/L (3.5-5.1); Promyelocytes % 0; Reactive Lymphocytes 0; Total Protein 6.3 g/dL (6.4-8.2)
[2017-05-10] MEDS ORDERED: IOHEXOL 350 MG/ML 100ML IJ ONE (06:54)
[2017-05-10 08:00] VITALS: BP 150/61
[2017-05-10] MEDS: SODIUM CHLOR 0.9% PF (SALINE LOCK) 10ML VIAL IV SCH ×3 (08:22→22:02)
[2017-05-10 09:44] VITALS: BP 135/63
[2017-05-10] MEDS: CALCIUM CARB 500 MG CHEW TAB PO SCH ×2 (10:00→22:01)
[2017-05-10] MEDS: PANTOPRAZOLE 40 MG TAB PO SCH (10:00)
[2017-05-10] MEDS: ZINC SULFATE 220 MG CAP PO SCH (10:21)
[2017-05-10] MEDS: POTASSIUM CHL 20 Meq TABLET PO SCH (10:22)
[2017-05-10] MEDS: CHOLECALCIFEROL (VITD3) 1,000 UNIT TAB PO SCH (10:22)
[2017-05-10] MEDS: FAMOTIDINE 20 MG TAB PO SCH ×2 (10:23→22:00)
[2017-05-10] MEDS: MULTIPLE VITAMIN TAB PO SCH (10:24)
[2017-05-10] MEDS: predniSONE 5 MG TAB PO SCH (10:26)
[2017-05-10] MEDS: DILTIAZEM HCL 120MG ER CAP PO SCH (10:26)
[2017-05-10] MEDS: ASCORBIC ACID 500 MG TAB PO SCH ×2 (10:26→21:59)
[2017-05-10] MEDS: ASPirin-EC 81 mg tab PO SCH (10:27)
[2017-05-10] MEDS: HCTZ 25 MG TAB PO SCH (10:28)
[2017-05-10 11:59] LABS: Eosinophils % (manual) 5 (0-7); Lymphocytes % (manual) 41 (10.0-50.0); Monocytes % (manual) 10 (0-12)
[2017-05-10 13:09] VITALS: BP 126/65
[2017-05-10 17:00] VITALS: BP 138/64
[2017-05-10 22:00] VITALS: BP 116/55
[2017-05-10] MEDS: LATANOPROST 0.005 % OPTH(EYE) SOL 2.5ML EACHEYE SCH (22:00)
[2017-05-10] MEDS: TEMAZEPAM 15 MG CAP PO PRN (22:00)
[2017-05-11] MEDS: IPRATROPIUM BROM 0.5 MG/2.5ML INH SOL NEB SCH ×5 (00:35→21:54)
[2017-05-11] MEDS: ALBUTEROL SULF 2.5 MG/0.5ML(0.5%) NEB SOLN NEB SCH ×5 (00:36→21:54)
[2017-05-11 05:00] VITALS: BP 139/72
[2017-05-11] MEDS: ACCU-CHEK COMFORT CURVE STRIP VI SCH ×4 (05:40→21:40)
[2017-05-11] MEDS: PROPAFENONE HCL 150 MG TAB PO SCH ×3 (05:41→21:43)
[2017-05-11] MEDS: SODIUM CHLOR 0.9% PF (SALINE LOCK) 10ML VIAL IV SCH ×3 (05:46→21:40)
[2017-05-11] MEDS: EYE OP SCH ×3 (05:47→21:41)
[2017-05-11] MEDS: AZOPT 1% OP SCH ×3 (05:47→21:41)
[2017-05-11] MEDS: InsuLIN REG 1unit/0.01ml Soln (100units/ml) SC SCH ×4 (06:18→21:40)
[2017-05-11 09:14] VITALS: BP 143/72
[2017-05-11] MEDS: PANTOPRAZOLE 40 MG TAB PO SCH (10:00)
[2017-05-11] MEDS: CALCIUM CARB 500 MG CHEW TAB PO SCH ×2 (10:00→21:42)
[2017-05-11] MEDS: BUDESONIDE (INHALATION) 0.5 MG/2 ML NEB NEB SCH ×2 (10:39→20:50)
[2017-05-11] MEDS: LINEZOLID 600MG TABLET PO SCH ×2 (11:04→21:44)
[2017-05-11] MEDS: predniSONE 5 MG TAB PO SCH (11:04)
[2017-05-11] MEDS: CHOLECALCIFEROL (VITD3) 1,000 UNIT TAB PO SCH (11:04)
[2017-05-11] MEDS: POTASSIUM CHL 20 Meq TABLET PO SCH (11:05)
[2017-05-11] MEDS: ZINC SULFATE 220 MG CAP PO SCH (11:05)
[2017-05-11] MEDS: MULTIPLE VITAMIN TAB PO SCH (11:05)
[2017-05-11] MEDS: ASCORBIC ACID 500 MG TAB PO SCH ×2 (11:05→21:42)
[2017-05-11] MEDS: ASPirin-EC 81 mg tab PO SCH (11:06)
[2017-05-11] MEDS: DILTIAZEM HCL 120MG ER CAP PO SCH (11:07)
[2017-05-11] MEDS: HCTZ 25 MG TAB PO SCH (11:08)
[2017-05-11] MEDS: FAMOTIDINE 20 MG TAB PO SCH ×2 (11:10→21:44)
[2017-05-11 12:06] VITALS: BP 139/72
[2017-05-11] MEDS: DOXYCYCLINE HYC 100MG/250ML 250 ML IV SCH ×2 (12:16→21:41)
[2017-05-11 16:54] VITALS: BP 139/72
[2017-05-11 21:39] VITALS: BP 121/59
[2017-05-11] MEDS: TEMAZEPAM 15 MG CAP PO PRN (21:44)
[2017-05-12] MEDS: LATANOPROST 0.005 % OPTH(EYE) SOL 2.5ML EACHEYE SCH ×2 (04:45→22:00)
[2017-05-12] MEDS: SODIUM CHLOR 0.9% PF (SALINE LOCK) 10ML VIAL IV SCH ×2 (04:45→13:58)
[2017-05-12] MEDS: Boost Glucose Control 8 Ounces PO SCH ×3 (04:45→21:17)
[2017-05-12] MEDS: EYE OP SCH ×3 (04:46→21:17)
[2017-05-12] MEDS: AZOPT 1% OP SCH ×3 (04:46→21:17)
[2017-05-12 05:07] VITALS: BP 128/75
[2017-05-12] MEDS: InsuLIN REG 1unit/0.01ml Soln (100units/ml) SC SCH ×4 (06:12→22:00)
[2017-05-12] MEDS: ACCU-CHEK COMFORT CURVE STRIP VI SCH ×3 (06:13→17:50)
[2017-05-12] MEDS: PROPAFENONE HCL 150 MG TAB PO SCH ×3 (06:15→21:19)
[2017-05-12] MEDS: ALBUTEROL SULF 2.5 MG/0.5ML(0.5%) NEB SOLN NEB SCH ×3 (06:22→18:34)
[2017-05-12] MEDS: BUDESONIDE (INHALATION) 0.5 MG/2 ML NEB NEB SCH ×2 (06:22→18:41)
[2017-05-12] MEDS: IPRATROPIUM BROM 0.5 MG/2.5ML INH SOL NEB SCH ×3 (06:23→18:33)
[2017-05-12 07:57] VITALS: BP 133/57
[2017-05-12] MEDS: DOXYCYCLINE HYC 100MG/250ML 250 ML IV SCH ×2 (09:57→21:16)
[2017-05-12] MEDS: CALCIUM CARB 500 MG CHEW TAB PO SCH (09:58)
[2017-05-12] MEDS: predniSONE 5 MG TAB PO SCH (09:59)
[2017-05-12] MEDS: ASCORBIC ACID 500 MG TAB PO SCH (09:59)
[2017-05-12] MEDS: CHOLECALCIFEROL (VITD3) 1,000 UNIT TAB PO SCH (10:00)
[2017-05-12] MEDS: POTASSIUM CHL 20 Meq TABLET PO SCH (10:00)
[2017-05-12] MEDS: FAMOTIDINE 20 MG TAB PO SCH (10:00)
[2017-05-12] MEDS: HCTZ 25 MG TAB PO SCH (10:00)
[2017-05-12] MEDS: MULTIPLE VITAMIN TAB PO SCH (10:01)
[2017-05-12] MEDS: ZINC SULFATE 220 MG CAP PO SCH (10:01)
[2017-05-12] MEDS: ASPirin-EC 81 mg tab PO SCH (10:01)
[2017-05-12] MEDS: PANTOPRAZOLE 40 MG TAB PO SCH (10:01)
[2017-05-12] MEDS: LINEZOLID 600MG TABLET PO SCH ×2 (10:02→21:18)
[2017-05-12] MEDS: DILTIAZEM HCL 120MG ER CAP PO SCH (10:03)
[2017-05-12 13:00] VITALS: BP 112/63
[2017-05-12 16:59] VITALS: BP 133/72
[2017-05-12] MEDS: TEMAZEPAM 15 MG CAP PO PRN (21:19)
[2017-05-12 22:00] VITALS: BP 138/76
[2017-05-13] MEDS: IPRATROPIUM BROM 0.5 MG/2.5ML INH SOL NEB SCH ×4 (00:17→19:05)
[2017-05-13] MEDS: ALBUTEROL SULF 2.5 MG/0.5ML(0.5%) NEB SOLN NEB SCH ×4 (00:17→19:05)
[2017-05-13] MEDS: SODIUM CHLOR 0.9% PF (SALINE LOCK) 10ML VIAL IV SCH ×4 (00:42→21:35)
[2017-05-13] MEDS: FAMOTIDINE 20 MG TAB PO SCH ×3 (00:43→21:36)
[2017-05-13] MEDS: CALCIUM CARB 500 MG CHEW TAB PO SCH ×3 (00:43→21:36)
[2017-05-13] MEDS: ASCORBIC ACID 500 MG TAB PO SCH ×3 (00:44→21:36)
[2017-05-13] MEDS: ACCU-CHEK COMFORT CURVE STRIP VI SCH ×5 (00:44→22:32)
[2017-05-13 05:42] VITALS: BP 143/70
[2017-05-13] MEDS: EYE OP SCH ×3 (06:00→22:00)
[2017-05-13] MEDS: AZOPT 1% OP SCH ×3 (06:00→22:00)
[2017-05-13] MEDS: PROPAFENONE HCL 150 MG TAB PO SCH ×3 (06:01→21:36)
[2017-05-13] MEDS: InsuLIN REG 1unit/0.01ml Soln (100units/ml) SC SCH ×4 (06:02→22:32)
[2017-05-13] MEDS: BUDESONIDE (INHALATION) 0.5 MG/2 ML NEB NEB SCH ×2 (06:37→19:05)
[2017-05-13 08:00] VITALS: BP 141/76
[2017-05-13 09:00] VITALS: BP 141/76
[2017-05-13] MEDS: LINEZOLID 600MG TABLET PO SCH ×3 (10:00→21:36)
[2017-05-13] MEDS: Boost Glucose Control 8 Ounces PO SCH ×2 (10:00→21:35)
[2017-05-13] MEDS: PANTOPRAZOLE 40 MG TAB PO SCH (10:32)
[2017-05-13] MEDS: predniSONE 5 MG TAB PO SCH (10:32)
[2017-05-13] MEDS: MULTIPLE VITAMIN TAB PO SCH (10:32)
[2017-05-13] MEDS: CHOLECALCIFEROL (VITD3) 1,000 UNIT TAB PO SCH (10:33)
[2017-05-13] MEDS: ASPirin-EC 81 mg tab PO SCH (10:33)
[2017-05-13] MEDS: ZINC SULFATE 220 MG CAP PO SCH (10:33)
[2017-05-13] MEDS: POTASSIUM CHL 20 Meq TABLET PO SCH (10:33)
[2017-05-13] MEDS: DILTIAZEM HCL 120MG ER CAP PO SCH (10:34)
[2017-05-13] MEDS: HCTZ 25 MG TAB PO SCH (10:34)
[2017-05-13] MEDS: DOXYCYCLINE HYC 100MG/250ML 250 ML IV SCH ×2 (10:34→21:35)
[2017-05-13 13:00] VITALS: BP 137/74
[2017-05-13 17:00] VITALS: BP 133/77
[2017-05-13 21:57] VITALS: BP 124/71
[2017-05-13] MEDS: LATANOPROST 0.005 % OPTH(EYE) SOL 2.5ML EACHEYE SCH (22:29)
[2017-05-14] MEDS: IPRATROPIUM BROM 0.5 MG/2.5ML INH SOL NEB SCH ×3 (00:29→10:52)
[2017-05-14] MEDS: ALBUTEROL SULF 2.5 MG/0.5ML(0.5%) NEB SOLN NEB SCH ×3 (00:29→10:52)
[2017-05-14 05:49] VITALS: BP 139/77
[2017-05-14] MEDS: EYE OP SCH (06:00)
[2017-05-14] MEDS: AZOPT 1% OP SCH (06:00)
[2017-05-14] MEDS: SODIUM CHLOR 0.9% PF (SALINE LOCK) 10ML VIAL IV SCH (06:22)
[2017-05-14] MEDS: ACCU-CHEK COMFORT CURVE STRIP VI SCH (06:23)
[2017-05-14] MEDS: PROPAFENONE HCL 150 MG TAB PO SCH (06:28)
[2017-05-14] MEDS: InsuLIN REG 1unit/0.01ml Soln (100units/ml) SC SCH (06:28)
[2017-05-14] MEDS: BUDESONIDE (INHALATION) 0.5 MG/2 ML NEB NEB SCH (06:30)
[2017-05-14 08:00] VITALS: BP 122/63
[2017-05-14 09:00] VITALS: BP 122/63
[2017-05-14] MEDS: CALCIUM CARB 500 MG CHEW TAB PO SCH (10:00)
[2017-05-14] MEDS: Boost Glucose Control 8 Ounces PO SCH (10:00)
[2017-05-14] MEDS: PANTOPRAZOLE 40 MG TAB PO SCH (10:00)
[2017-05-14] MEDS: POTASSIUM CHL 20 Meq TABLET PO SCH (11:23)
[2017-05-14] MEDS: MULTIPLE VITAMIN TAB PO SCH (11:23)
[2017-05-14] MEDS: DILTIAZEM HCL 120MG ER CAP PO SCH (11:23)
[2017-05-14] MEDS: ASPirin-EC 81 mg tab PO SCH (11:23)
[2017-05-14] MEDS: predniSONE 5 MG TAB PO SCH (11:23)
[2017-05-14] MEDS: ZINC SULFATE 220 MG CAP PO SCH (11:24)
[2017-05-14] MEDS: FAMOTIDINE 20 MG TAB PO SCH (11:24)
[2017-05-14] MEDS: CHOLECALCIFEROL (VITD3) 1,000 UNIT TAB PO SCH (11:24)
[2017-05-14] MEDS: ASCORBIC ACID 500 MG TAB PO SCH (11:24)
[2017-05-14] MEDS: HCTZ 25 MG TAB PO SCH (11:24)
[2017-05-14] MEDS: LINEZOLID 600MG TABLET PO SCH (11:32)
[2017-05-14] MEDS: DOXYCYCLINE HYC 100MG/250ML 250 ML IV SCH (11:33)
[2017-05-14 13:00] VITALS: BP 126/71
[2017-05-14 16:50] VITALS: BP 150/82
[2017-05-14 19:29] VITALS: BP 122/68
== END 2017-05-14 20:25 | disposition home or self-care (01) | DRG 190 ==
LOC: TELE-WESTW 16:52
PROVIDERS: ADMIT Internal Medicine; ATTEND Internal Medicine
DX: J44.1 Chronic obstructive pulmonary disease with (acute) exacerbation (principal); I50.31 Acute diastolic (congestive) heart failure; E44.0 Moderate protein-calorie malnutrition; J96.10 Chronic respiratory failure, unspecified whether with hypoxia or hypercapnia; E11.9 Type 2 diabetes mellitus without complications; I48.91 Unspecified atrial fibrillation; S81.801A Unspecified open wound, right lower leg, initial encounter; H40.9 Unspecified glaucoma; Z68.21 Body mass index [BMI] 21.0-21.9, adult; I48.92 Unspecified atrial flutter; I11.0 Hypertensive heart disease with heart failure; X58.XXXA Exposure to other specified factors, initial encounter; Z80.3 Family history of malignant neoplasm of breast; Z82.49 Family history of ischemic heart disease and other diseases of the circulatory system; Z86.73 Personal history of transient ischemic attack (TIA), and cerebral infarction without residual deficits; Z88.1 Allergy status to other antibiotic agents; Z88.2 Allergy status to sulfonamides; Z88.8 Allergy status to other drugs, medicaments and biological substances; Z79.899 Other long term (current) drug therapy; Y93.89 Activity, other specified; Y92.89 Other specified places as the place of occurrence of the external cause; Y99.8 Other external cause status; Z71.3 Dietary counseling and surveillance
CPT/HCPCS: 36415; 71046; 71275; 80053; 81001; 82962; 83036; 83880; 84443; 84484; 85007; 85027; 85379; 87081; 87086; 94640; 97163; J1815; J3490

== ENCOUNTER 2017-10-04 07:49 | Inpatient (IN) | payer MEDICARE, BC ==
[~2017-10-04] VITALS: Ht 147.3 cm; Wt 49.1 kg
[2017-10-04 08:38] LABS: Basophils # (auto) 0.1 uL; Basophils % (auto) 1.3 % (0.0-2.0); Eosinophils # (auto) 0 uL; Eosinophils % (auto) 0.1 % (0.0-7.0); Hematocrit 39.2 % (36.0-46.0); Hemoglobin 12.4 g/dL (12.2-16.2); Lymphocytes # (auto) 2.9 uL; Lymphocytes % (auto) 24.8 % (10.0-50.0); Mean Corpuscular Hemoglobin 28.2 pg (28.0-32.0); Mean Corpuscular Hgb Conc. 31.6 g/dL (32.0-36.0); Mean Corpuscular Volume 89.2 fL (80.0-100.0); Monocytes # (auto) 1.2 uL; Monocytes % (auto) 10.8 % (0.0-12.0); Neutrophils # (auto) 7.2 uL; Platelet Count (auto) 294 10^3/uL (140-450); Red Blood Cells 4.39 10^6/uL (4.0-5.20); Red Cell Distribution Width 16.1 % (11.8-14.3); White Blood Cell 11.5 10^3/uL (4.4-10.8)
[2017-10-04 09:05] LABS: Alanine Aminotransferase 15 U/L (13-56); Albumin 3.4 g/dL (3.4-5.0); Alkaline Phosphatase 56 U/L (45-117); Anion Gap 11 (5-15); Aspartate Aminotransferase 28 U/L (15-37); BUN/Creatinine Ratio 22.1; Bilirubin, Total 0.7 mg/dL (0.2-1.0); Blood Urea Nitrogen 21 mg/dL (7-18); Calcium 8.7 mg/dL (8.5-10.1); Carbon Dioxide 32 mmol/L (21-32); Chloride 95 mmol/L (98-107); GFR African American 72 mL/min; GFR Non-African American 60 mL/min; Glucose 81 mg/dL (74-106); Magnesium 2.1 mg/dL (1.6-2.6); Potassium 3.3 mmol/L (3.5-5.1); Sodium 138 mmol/L (136-145); Total Protein 7.1 g/dL (6.4-8.2)
[2017-10-04] MEDS ORDERED: SODIUM CHLORIDE 0.9% 1,000 ML IV ONE (10:15)
[2017-10-04 11:38] LABS: Urine Bacteria NONE SEEN /hpf (None Seen); Urine Blood 1+ /uL (Negative); Urine Mucus FEW (None Seen); Urine Specific Gravity 1.021 (1.001-1.035); Urine WBC 2 /hpf (0 - 5)
[2017-10-04] MEDS: SODIUM CHLORIDE 0.9% 1,000 ML IV SCH ×2 (12:18→18:26)
[2017-10-04] MEDS ORDERED: LORazepam 0.5 MG TAB PO PRN (12:30)
[2017-10-04] MEDS ORDERED: LACTULOSE 20Gm/30ML SOLN PO PRN (12:30)
[2017-10-04] MEDS ORDERED: PROMETHAZINE HCL 25 MG/ML 1ML IV PRN (12:30)
[2017-10-04] MEDS ORDERED: TEMAZEPAM 15 MG CAP PO PRN (12:30)
[2017-10-04] MEDS ORDERED: ACETAMINOPHEN 500 MG TAB PO PRN (12:30)
[2017-10-04] MEDS ORDERED: MORPHINE SULF(PF) 0.5MG/ML 10ML VIAL IV PRN (12:30)
[2017-10-04] MEDS ORDERED: DEXTROSE (50%) 50ML SYRG IV PRN (12:30)
[2017-10-04] MEDS ORDERED: LABETALOL HCL 5 MG/ML ML 20ML VIAL IV PRN (12:30)
[2017-10-04] MEDS ORDERED: cefTRIAXone 1GM/10ml IVPUSH 10 ML IV ONE (12:30)
[2017-10-04] MEDS ORDERED: HYDROcodone-ACET 5/325MG TAB PO PRN (12:30)
[2017-10-04] MEDS ORDERED: NITROGLYCERIN 0.4 MG SL TAB SL PRN (12:30)
[2017-10-04] MEDS ORDERED: ALBUTEROL SULF 2.5 MG/0.5ML(0.5%) NEB SOLN NEB PRN (12:30)
[2017-10-04] MEDS: IPRATROPIUM BROM 0.5 MG/2.5ML INH SOL NEB SCH ×2 (13:10→19:26)
[2017-10-04] MEDS: ALBUTEROL SULF 2.5 MG/0.5ML(0.5%) NEB SOLN NEB SCH ×2 (13:10→19:27)
[2017-10-04] MEDS: CHOLECALCIFEROL (VITD3) 1,000 UNIT TAB PO SCH (13:18)
[2017-10-04] MEDS: ASPirin-EC 81 mg tab PO SCH (13:18)
[2017-10-04] MEDS: ENOXAPARIN SOD 40 MG/0.4 ML SYRINGE SC SCH ×2 (13:18→22:28)
[2017-10-04 13:24] LABS: Folate (Folic Acid) 22.84 ng/mL (5.38-24)
[2017-10-04] MEDS: BRINZOLAMIDE 1% EACHEYE SCH ×2 (14:00→22:00)
[2017-10-04] MEDS: PROPAFENONE HCL 150 MG PO SCH ×2 (14:32→22:28)
[2017-10-04] MEDS: InsuLIN REG 1unit/0.01ml Soln (100units/ml) SC SCH ×2 (17:00→22:00)
[2017-10-04 17:30] VITALS: BP 160/78
[2017-10-04 17:58] VITALS: BP 160/78
[2017-10-04] MEDS: LATANOPROST 0.005 % OPTH(EYE) SOL 2.5ML OP SCH (18:00)
[2017-10-04] MEDS ORDERED: PATIENTS OWN MEDICATION (Ranitidine Hcl 1 CAP) PO SCH (18:00)
[2017-10-04] MEDS: DILTIAZEM HCL 120MG ER CAP PO SCH (18:21)
[2017-10-04] MEDS: ACCU-CHEK COMFORT CURVE STRIP VI SCH ×2 (18:22→22:28)
[2017-10-04 19:55] VITALS: BP 144/80
[2017-10-04] MEDS ORDERED: APIX2.5T PO (20:49)
[2017-10-04 21:57] VITALS: BP 143/72
[2017-10-04] MEDS ORDERED: ATORVASTATIN 20 MG TAB PO SCH (22:00)
[2017-10-05] MEDS: IPRATROPIUM BROM 0.5 MG/2.5ML INH SOL NEB SCH ×4 (00:29→19:27)
[2017-10-05] MEDS: ALBUTEROL SULF 2.5 MG/0.5ML(0.5%) NEB SOLN NEB SCH ×4 (00:29→19:27)
[2017-10-05 05:10] VITALS: BP 101/53
[2017-10-05] MEDS: BRINZOLAMIDE 1% EACHEYE SCH ×3 (06:00→21:27)
[2017-10-05] MEDS: ACCU-CHEK COMFORT CURVE STRIP VI SCH ×4 (06:20→21:28)
[2017-10-05] MEDS: InsuLIN REG 1unit/0.01ml Soln (100units/ml) SC SCH ×4 (06:20→22:26)
[2017-10-05] MEDS: PROPAFENONE HCL 150 MG PO SCH ×3 (06:20→21:27)
[2017-10-05 06:34] LABS: Basophils # (auto) 0.1 uL; Basophils % (auto) 0.7 % (0.0-2.0); Eosinophils # (auto) 0 uL; Eosinophils % (auto) 0.4 % (0.0-7.0); Hematocrit 36.1 % (36.0-46.0); Hemoglobin 11.8 g/dL (12.2-16.2); Lymphocytes # (auto) 1.9 uL; Lymphocytes % (auto) 15.8 % (10.0-50.0); Mean Corpuscular Hemoglobin 28.8 pg (28.0-32.0); Mean Corpuscular Hgb Conc. 32.6 g/dL (32.0-36.0); Mean Corpuscular Volume 88.5 fL (80.0-100.0); Monocytes # (auto) 1.2 uL; Monocytes % (auto) 9.8 % (0.0-12.0); Neutrophils # (auto) 8.7 uL; Neutrophils % (auto) 73.3 % (37.0-80.0); Nucleated Red Blood Cells % 0.1 %; Platelet Count (auto) 267 10^3/uL (140-450); Red Blood Cells 4.08 10^6/uL (4.0-5.20); Red Cell Distribution Width 15.7 % (11.8-14.3); White Blood Cell 11.9 10^3/uL (4.4-10.8)
[2017-10-05 06:50] LABS: Albumin 2.8 g/dL (3.4-5.0); Potassium 3.2 mmol/L (3.5-5.1)
[2017-10-05 06:52] LABS: BUN/Creatinine Ratio 27.5
[2017-10-05 06:54] LABS: Bilirubin, Total 0.5 mg/dL (0.2-1.0); Total Protein 5.8 g/dL (6.4-8.2)
[2017-10-05] MEDS ORDERED: RANITIDINE HCL 150 MG PO SCH (07:00)
[2017-10-05] MEDS: cefTRIAXone 1GM/10ml IVPUSH 10 ML IV SCH (09:26)
[2017-10-05] MEDS: PANTOPRAZOLE 40 MG TAB PO SCH (09:28)
[2017-10-05] MEDS: CHOLECALCIFEROL (VITD3) 1,000 UNIT TAB PO SCH (09:28)
[2017-10-05] MEDS: ASPirin-EC 81 mg tab PO SCH (09:29)
[2017-10-05] MEDS: predniSONE 5 MG TAB PO SCH (09:29)
[2017-10-05] MEDS: CALCIUM CARB 500 MG CHEW TAB PO SCH (09:30)
[2017-10-05] MEDS: ENOXAPARIN SOD 40 MG/0.4 ML SYRINGE SC SCH (09:31)
[2017-10-05] MEDS: SODIUM CHLORIDE 0.9% 1,000 ML IV SCH (09:32)
[2017-10-05 10:00] VITALS: BP 153/72
[2017-10-05] MEDS ORDERED: ENOXAPARIN SOD 40 MG/0.4 ML SYRINGE SC SCH (10:00)
[2017-10-05] MEDS ORDERED: ASPirin 81 mg TAB PO SCH (10:00)
[2017-10-05] MEDS ORDERED: POTASSIUM CHL 20 Meq TABLET PO ONE (12:00)
[2017-10-05 13:00] VITALS: BP 150/68
[2017-10-05 17:00] VITALS: BP 142/68
[2017-10-05] MEDS: DILTIAZEM HCL 120MG ER CAP PO SCH (17:58)
[2017-10-05] MEDS: LATANOPROST 0.005 % OPTH(EYE) SOL 2.5ML OP SCH (17:59)
[2017-10-05] MEDS: APIXABAN 2.5 MG TAB PO SCH (21:27)
[2017-10-05 22:00] VITALS: BP 128/63
[2017-10-06] MEDS: SODIUM CHLORIDE 0.9% 1,000 ML IV SCH ×2 (01:19→14:21)
[2017-10-06] MEDS: IPRATROPIUM BROM 0.5 MG/2.5ML INH SOL NEB SCH ×3 (01:27→12:06)
[2017-10-06] MEDS: ALBUTEROL SULF 2.5 MG/0.5ML(0.5%) NEB SOLN NEB SCH ×3 (01:27→12:06)
[2017-10-06 05:00] VITALS: BP 139/74
[2017-10-06] MEDS: BRINZOLAMIDE 1% EACHEYE SCH ×2 (06:00→14:20)
[2017-10-06] MEDS: PROPAFENONE HCL 150 MG PO SCH ×2 (06:00→14:21)
[2017-10-06] MEDS: ACCU-CHEK COMFORT CURVE STRIP VI SCH ×2 (06:01→12:41)
[2017-10-06] MEDS: InsuLIN REG 1unit/0.01ml Soln (100units/ml) SC SCH ×2 (06:01→12:41)
[2017-10-06 07:12] LABS: Basophils # (auto) 0 uL; Basophils % (auto) 0.3 % (0.0-2.0); Eosinophils # (auto) 0 uL; Eosinophils % (auto) 0.3 % (0.0-7.0); Hematocrit 35.7 % (36.0-46.0); Hemoglobin 11.6 g/dL (12.2-16.2); Lymphocytes # (auto) 1.7 uL; Lymphocytes % (auto) 13.3 % (10.0-50.0); Mean Corpuscular Hgb Conc. 32.4 g/dL (32.0-36.0); Mean Corpuscular Volume 89.6 fL (80.0-100.0); Monocytes # (auto) 1.2 uL; Monocytes % (auto) 9.5 % (0.0-12.0); Neutrophils # (auto) 9.9 uL; Neutrophils % (auto) 76.6 % (37.0-80.0); Nucleated Red Blood Cells % 0.1 %; Platelet Count (auto) 243 10^3/uL (140-450); Red Blood Cells 3.99 10^6/uL (4.0-5.20); Red Cell Distribution Width 16.2 % (11.8-14.3); White Blood Cell 12.9 10^3/uL (4.4-10.8)
[2017-10-06 07:20] LABS: BUN/Creatinine Ratio 21.8; Calcium 7.9 mg/dL (8.5-10.1); Potassium 3.6 mmol/L (3.5-5.1)
[2017-10-06 08:00] VITALS: BP 156/74
[2017-10-06 08:06] VITALS: BP 155/72
[2017-10-06] MEDS: CHOLECALCIFEROL (VITD3) 1,000 UNIT TAB PO SCH (10:00)
[2017-10-06] MEDS: PANTOPRAZOLE 40 MG TAB PO SCH (10:00)
[2017-10-06] MEDS: predniSONE 5 MG TAB PO SCH (10:21)
[2017-10-06] MEDS: cefTRIAXone 1GM/10ml IVPUSH 10 ML IV SCH (10:21)
[2017-10-06] MEDS: APIXABAN 2.5 MG TAB PO SCH (10:21)
[2017-10-06] MEDS: CALCIUM CARB 500 MG CHEW TAB PO SCH (10:22)
[2017-10-06 12:07] VITALS: BP 140/79
== END 2017-10-06 16:49 | disposition home health service (06) | DRG 64 ==
LOC: EDBD 07:49 → ER 07:49 → TELE 07:50 → TELE-CENTR 17:12
PROVIDERS: ADMIT Internal Medicine; ATTEND Internal Medicine
DX: I63.9 Cerebral infarction, unspecified (principal); G93.41 Metabolic encephalopathy; I13.0 Hypertensive heart and chronic kidney disease with heart failure and stage 1 through stage 4 chronic kidney disease, or unspecified chronic kidney disease; G81.94 Hemiplegia, unspecified affecting left nondominant side; E87.6 Hypokalemia; D72.829 Elevated white blood cell count, unspecified; E11.22 Type 2 diabetes mellitus with diabetic chronic kidney disease; E78.5 Hyperlipidemia, unspecified; I25.10 Atherosclerotic heart disease of native coronary artery without angina pectoris; I48.91 Unspecified atrial fibrillation; I50.9 Heart failure, unspecified; J44.9 Chronic obstructive pulmonary disease, unspecified; K21.9 Gastro-esophageal reflux disease without esophagitis; M35.3 Polymyalgia rheumatica; F41.9 Anxiety disorder, unspecified; M31.6 Other giant cell arteritis; N18.3 Chronic kidney disease, stage 3 (moderate); Z79.01 Long term (current) use of anticoagulants; Z79.82 Long term (current) use of aspirin; Z79.899 Other long term (current) drug therapy; Z80.0 Family history of malignant neoplasm of digestive organs; Z80.3 Family history of malignant neoplasm of breast; Z82.49 Family history of ischemic heart disease and other diseases of the circulatory system; Z85.3 Personal history of malignant neoplasm of breast; Z85.828 Personal history of other malignant neoplasm of skin; Z90.710 Acquired absence of both cervix and uterus; Z95.5 Presence of coronary angioplasty implant and graft; Z88.2 Allergy status to sulfonamides; Z88.1 Allergy status to other antibiotic agents; Z88.8 Allergy status to other drugs, medicaments and biological substances; Z79.4 Long term (current) use of insulin; Z90.49 Acquired absence of other specified parts of digestive tract
CPT/HCPCS: 36415; 70450; 70551; 71045; 80048; 80053; 81001; 82550; 82607; 82746; 82962; 83036; 83735; 84443; 84484; 85025; 85652; 87086; 93306; 93886; 94640; 94761; 95819; 96361; 96374; 97116; 97163; J1815

== ENCOUNTER 2018-08-15 17:54 | Inpatient (IN) | payer MEDICARE, BC ==
[~2018-08-15] VITALS: Ht 162.6 cm; Wt 58.0 kg
[~2018-08-15 17:54] MED LIST changes: +APIX2.5T PO
[2018-08-15] MEDS ORDERED: DILTIAZEM HCL 120MG ER CAP PO ONE (19:00)
[2018-08-15 19:01] LABS: Basophils # (auto) 0.1 uL; Eosinophils # (auto) 0 uL; Monocytes # (auto) 0.4 uL; Monocytes % (auto) 3.3 % (0.0-12.0); Neutrophils # (auto) 12.3 uL; Red Blood Cells 3.92 10^6/uL (4.0-5.20)
[2018-08-15 19:03] LABS: Basophils % (auto) 0.5 % (0.0-2.0); Hematocrit 36.5 % (36.0-46.0); Lymphocytes # (auto) 0.5 uL; Lymphocytes % (auto) 3.7 % (10.0-50.0); Mean Corpuscular Hemoglobin 28.1 pg (28.0-32.0); Mean Corpuscular Hgb Conc. 30.2 g/dL (32.0-36.0); Mean Corpuscular Volume 93.1 fL (80.0-100.0); Neutrophils % (auto) 92.5 % (37.0-80.0); Platelet Count (auto) 382 10^3/uL (140-450); Red Cell Distribution Width 15.8 % (11.8-14.3); White Blood Cell 13.3 10^3/uL (4.4-10.8)
[2018-08-15 19:05] LABS: Albumin 3.4 g/dL (3.4-5.0); Calcium 8.9 mg/dL (8.5-10.1); Potassium 5.4 mmol/L (3.5-5.1)
[2018-08-15 19:08] LABS: BUN/Creatinine Ratio 22.1; Bilirubin, Total 0.4 mg/dL (0.2-1.0); Total Protein 7.4 g/dL (6.4-8.2)
[2018-08-15] MEDS ORDERED: IPRATROPIUM BROM 0.5 MG/2.5ML INH SOL NEB ONE (19:15)
[2018-08-15] MEDS ORDERED: methylPREDNISolone SOD SUCC 125 MG/2 ML VL IV ONE (19:15)
[2018-08-15] MEDS ORDERED: ALBUTEROL SULF 2.5 MG/0.5ML(0.5%) NEB SOLN NEB ONE (19:15)
[2018-08-15 20:02] VITALS: BP 170/92
[2018-08-15 20:42] VITALS: BP 170/92
[2018-08-15] MEDS ORDERED: LEVOFLOXACIN 250MG 50 ML IV ONE (21:15)
[2018-08-15] MEDS ORDERED: PIPERACILLIN-TAZOB 3.375GM 100 ML IV ONE (22:00)
[2018-08-15] MEDS ORDERED: DEXTROSE (50%) 50ML SYRG IV PRN (22:15)
[2018-08-15] MEDS ORDERED: NITROGLYCERIN 0.4 MG SL TAB SL PRN (22:15)
[2018-08-15] MEDS ORDERED: FUROSEMIDE 20 MG/2 ML VIAL IV ONE (22:15)
[2018-08-15] MEDS ORDERED: ALBUTEROL SULF 2.5 MG/0.5ML(0.5%) NEB SOLN NEB PRN (22:15)
[2018-08-15] MEDS ORDERED: AZITHROMYCIN 500MG/ 250ML 250 ML IV ONE (22:15)
[2018-08-15] MEDS ORDERED: TEMAZEPAM 15 MG CAP PO PRN (22:15)
[2018-08-15] MEDS ORDERED: ACETAMINOPHEN 325 MG TAB PO PRN (22:15)
[2018-08-15] MEDS ORDERED: ONDANSETRON HCL 4 MG/2 ML VIAL IV PRN (22:15)
[2018-08-15] MEDS ORDERED: IPRATROPIUM BROM 0.5 MG/2.5ML INH SOL NEB PRN (22:15)
[2018-08-15] MEDS ORDERED: HYDROcodone-ACET 5/325MG TAB PO PRN (22:15)
[2018-08-15] MEDS ORDERED: MORPHINE SULF INJ 2 MG/ML SYRINGE 1ML IV PRN (22:15)
[2018-08-15 23:29] LABS: Urine Amorphous Crystal FEW /hpf (None Seen); Urine Bacteria MANY /hpf (None Seen); Urine Blood TRACE /uL (Negative); Urine Hyaline Cast MANY /lpf (0 - 2); Urine Mucus FEW (None Seen); Urine Specific Gravity 1.019 (1.001-1.035); Urine WBC 4 /hpf (0 - 5)
[2018-08-15] MEDS ORDERED: LORazepam 2MG/ML-1ML VIAL IV ONE (23:30)
[2018-08-16] VITALS (8 sets, daily range): BP systolic 99–170; BP diastolic 59–92
[2018-08-16] MEDS: ACCU-CHEK COMFORT CURVE STRIP VI SCH ×4 (00:16→18:07)
[2018-08-16] MEDS: InsuLIN REG 1unit/0.01ml Soln (100units/ml) SC SCH ×4 (00:26→18:00)
--- NOTE | 2018-08-16 04:23 | NUR ---
Respiratory note: FIO2 TITRATED TO 40% VIA BIPAP OSWALDO VOGT MADE AWARE OF CHANGE.
[2018-08-16] MEDS ORDERED: FUROSEMIDE 20 MG TAB PO SCH (06:00)
[2018-08-16 06:07] LABS: Basophils # (auto) 0.1 uL; Basophils % (auto) 0.5 % (0.0-2.0); Eosinophils # (auto) 0 uL; Hematocrit 32.8 % (36.0-46.0); Hemoglobin 10.2 g/dL (12.2-16.2); Lymphocytes # (auto) 0.5 uL; Lymphocytes % (auto) 2.9 % (10.0-50.0); Mean Corpuscular Hemoglobin 28.1 pg (28.0-32.0); Mean Corpuscular Volume 90.6 fL (80.0-100.0); Monocytes # (auto) 0.9 uL; Monocytes % (auto) 5.2 % (0.0-12.0); Neutrophils # (auto) 15.5 uL; Neutrophils % (auto) 91.4 % (37.0-80.0); Nucleated Red Blood Cells % 0.1 %; Platelet Count (auto) 370 10^3/uL (140-450); Red Blood Cells 3.62 10^6/uL (4.0-5.20); Red Cell Distribution Width 15.1 % (11.8-14.3); White Blood Cell 16.9 10^3/uL (4.4-10.8)
--- NOTE | 2018-08-16 06:10 | NUR ---
pt assessed for prn hhn tx. pt on bipap and in no respiratory distress. spo2 99%. breathing tx not indicated at this time. will continue to monitor.
[2018-08-16 06:29] LABS: Albumin 3.1 g/dL (3.4-5.0); Potassium 5.1 mmol/L (3.5-5.1)
[2018-08-16 06:31] LABS: BUN/Creatinine Ratio 23.1
[2018-08-16 06:33] LABS: Bilirubin, Total 0.6 mg/dL (0.2-1.0); Total Protein 7.1 g/dL (6.4-8.2)
[2018-08-16] MEDS: DILTIAZEM HCL 120MG ER CAP PO SCH (09:29)
[2018-08-16] MEDS: cefTRIAXone 1GM/50ML D5W 50 ML IV SCH (09:29)
[2018-08-16] MEDS: APIXABAN 2.5 MG TAB PO SCH ×2 (09:29→23:37)
[2018-08-16] MEDS: ASPirin 81 mg TAB PO SCH (09:29)
[2018-08-16] MEDS: PANTOPRAZOLE 40 MG TAB PO SCH (09:30)
[2018-08-16] MEDS ORDERED: SODIUM CHLORIDE 0.9% 1,000 ML IV SCH (09:45)
[2018-08-16] MEDS: AZITHROMYCIN 500MG/ 250ML 250 ML IV SCH (10:04)
[2018-08-16 10:43] LABS: Cholesterol 200 mg/dL (< 200); Triglycerides 102 mg/dL (< 150)
[2018-08-16 10:45] LABS: HDL Cholesterol 49 mg/dL (40-59); LDL Cholesterol 134 mg/dL (< 100)
[2018-08-16] MEDS ORDERED: FUROSEMIDE 40 MG/4 ML VIAL IV ONE (11:00)
[2018-08-16] MEDS: PROPAFENONE 150 MG PO SCH ×2 (14:00→23:37)
[2018-08-16] MEDS: FUROSEMIDE 40 MG/4 ML VIAL IV SCH ×2 (14:00→23:36)
--- NOTE | 2018-08-16 16:40 | NUR ---
MS admit from ER MARGIFLORIVIKASIsabella admitted to tele/MS after SBAR received. Patient oriented to Kamar Dill, primary RN, unit, room, bed, and unit policies regarding patient care and visiting hours. Patient weighed by bedscale and encouraged to call if they need something. All questions and concerns addressed. Note: Patient unable to tell me her name or answer questions appropriately.
--- NOTE | 2018-08-16 16:45 | NUR ---
Respiratory note: PT TRANSPORTED TO ROOM 235 ON 3LNC. NO S/S OF RESPIRATORY DISTRESS. BIPAP AT BEDSIDE IF NEEDED. SPO2 95%.
--- NOTE | 2018-08-16 18:23 | NUR ---
PT ASSESSED FOR PRN TX AT THIS TIME. PT IS SLEEPING WITH NO ACUTE RESP DISTRESS NOTED. TX IS NOT INDICATED AT THIS TIME. PT'S DAUGHTER BEDSIDE AND IS AWARE TO PAGE IF PT WAKES UP SOB. HR 84 RR 20 99% ON 3 LPM VIA NC. B/S ARE DECREASED WITH SCATTERED CRACKLES.
--- NOTE | 2018-08-16 19:30 | NUR ---
Opening Shift Note Assumed care of patient, awake and alert to self. Very lethargic. Arrousable to touch. Skin clear other than scar to ross from past hematoma per daughter. Daughter Ilene who is her primary caregiver at bedside. No S/S of distress/SOB or pain.Mittens on due to pulling at IV in ER. Bed alarm placed and in lowest position. IV patent and reinforced and wrapped for safety. Instructed on POC and to call for assist PRN, will continue to monitor for changes Q1hr and PRN. Daughter verbalized patient going on hospice when discharged home. Pharmacy needed me to fill out paper for home med and bring it down to them. I had daughter Ileen sign he med sheet. Pharm now in possesion of home med. POM placed on patient.
[2018-08-17 05:22] VITALS: BP 134/68
[2018-08-17] MEDS: ACCU-CHEK COMFORT CURVE STRIP VI SCH ×5 (06:00→23:29)
[2018-08-17] MEDS: InsuLIN REG 1unit/0.01ml Soln (100units/ml) SC SCH ×5 (06:00→23:29)
[2018-08-17] MEDS: FUROSEMIDE 40 MG/4 ML VIAL IV SCH (06:49)
[2018-08-17] MEDS: PROPAFENONE 150 MG PO SCH ×3 (06:49→21:43)
[2018-08-17 07:09] LABS: Calcium 8.4 mg/dL (8.5-10.1); Potassium 4.2 mmol/L (3.5-5.1)
[2018-08-17 07:10] LABS: BUN/Creatinine Ratio 27.8
--- NOTE | 2018-08-17 07:15 | NUR ---
PT. ASSESSED FOR PRN. MN. TX., PT. IS SLEEPING, NO RESP. DISTRESS NOTED. BS. WITH SLIGHT CRACKLES. HR=88,RR=20,UD57=447% ON 3LPM NC. TX. NOT INDICATED AT THIS TIME. NO TX. GIVEN AT THIS TIME, WILL CONTINUE TO MONITOR RESP. STATUS.
--- NOTE | 2018-08-17 08:00 | NUR ---
Placed order for dietary and swallow eval due to coughing spells with what I noticed was mostly when drinking water. No distress at this time.
--- NOTE | 2018-08-17 08:53 | NUR ---
patient pulled out iv. pressure held. well tolerated
[2018-08-17 08:55] VITALS: BP 123/83
--- NOTE | 2018-08-17 09:11 | NUR ---
22 gauge placed in right ac. well tolerated.
[2018-08-17] MEDS: cefTRIAXone 1GM/50ML D5W 50 ML IV SCH (09:20)
[2018-08-17] MEDS: PANTOPRAZOLE 40 MG TAB PO SCH (09:20)
[2018-08-17] MEDS: APIXABAN 2.5 MG TAB PO SCH ×2 (09:20→21:43)
[2018-08-17] MEDS: ASPirin 81 mg TAB PO SCH (09:20)
[2018-08-17] MEDS: DILTIAZEM HCL 120MG ER CAP PO SCH (09:23)
[2018-08-17] MEDS ORDERED: FUROSEMIDE 20 MG TAB PO SCH (10:00)
[2018-08-17] MEDS: AZITHROMYCIN 500MG/ 250ML 250 ML IV SCH (10:46)
--- NOTE | 2018-08-17 12:36 | NUR ---
IM signed by pt and copy placed in chart Addendum: 08/17/18 at 1238 by Kelsey Ordoñez RN CM pt unable to sign, copy of IM stating this put in chart
--- NOTE | 2018-08-17 12:42 | NUR ---
NUTRITION CONSULT/ASSESSMENT NOTES Please refer to link notes of nutrition screen form filed under the intervention section of the plan of care for further details. Est. Needs: 1450 kcal to 1750 kcal (25-30 kcal/kgBW), 46 gms to 58 gms pro (0.8-1.0 gms/kgBW). Will continue to monitor pertinent labs and reassess nutrient need prn Thank you for this consult. Addendum: 08/17/18 at [address] Amended: Links added.
[2018-08-17 13:00] VITALS: BP 123/77
--- NOTE | 2018-08-17 14:14 | NUR ---
patient confused and refusing medications
[2018-08-17 16:38] VITALS: BP 133/76
[2018-08-17] MEDS: Glucerna Carbsteady SHAKE Chocolate 8oz PO SCH (17:34)
--- NOTE | 2018-08-17 18:25 | NUR ---
SWALLOW EVALUATED WITH FAMILY PRESENT. PATIENT HAS TEETH UPPER AND LOWER. PATIENT ALOC. ABLE TO TOLERATE PUREE TEXTURE AND MECHANICAL SOFT TRIAL. NURSING REPORTS PATIENT COUGHING ON THIN LIQUIDS. FAMILY REPORTS THIS IS TYPICAL. RECOMMEND NECTAR THICKENED LIQUIDS. NURSING NOTIFIED.
--- NOTE | 2018-08-17 19:29 | NUR ---
Opening Shift Note Assumed care of patient, awake and alert. Family member at bedside. No S/S of distress/SOB or pain. Instructed on POC and to call for assist PRN, will continue to monitor for changes Q1hr and PRN. Safety precautions in place. Bed locked and in lowest position
--- NOTE | 2018-08-17 23:30 | NUR ---
PATIENT REFUSED INSULIN Educated pt purpose of insulin risk and benefits, pt refused med
--- NOTE | 2018-08-18 00:32 | NUR ---
PT Rounds pt resting no s/sx's of distress noted, pt on 3 L NC
--- NOTE | 2018-08-18 01:46 | NUR ---
PT ROUNDS Pt awake, resting no s/sx;s of distress noted, pt placed on 3 L Nc will continue to monitor pt.
--- NOTE | 2018-08-18 04:25 | NUR ---
PT SEEN SLEEPING IN BED ON 2L NC, SPO2 94%, BS CLEAR AND DIMINISHED, NO RESP DISTRESS NOTED. PRN NEB TX NOT INDICATED AT THIS TIME.
[2018-08-18 05:07] VITALS: BP 139/70
[2018-08-18] MEDS: InsuLIN REG 1unit/0.01ml Soln (100units/ml) SC SCH ×2 (05:39→12:00)
[2018-08-18] MEDS: ACCU-CHEK COMFORT CURVE STRIP VI SCH ×2 (05:39→13:09)
[2018-08-18] MEDS: PROPAFENONE 150 MG PO SCH ×2 (05:44→14:00)
--- NOTE | 2018-08-18 07:02 | NUR ---
CLOSING NOTE PT resting with 2 LNC no s/sx's of distress or sob noted
--- NOTE | 2018-08-18 08:14 | NUR ---
CALLED FAMILY TO SEE IF THEY WERE GOING TO BE COMING TO SEE THE PATIENT. PATIENT PULLED OUT IV.
[2018-08-18 09:00] VITALS: BP 134/68
[2018-08-18] MEDS: cefTRIAXone 1GM/50ML D5W 50 ML IV SCH (09:00)
[2018-08-18] MEDS: APIXABAN 2.5 MG TAB PO SCH (10:00)
[2018-08-18] MEDS: AZITHROMYCIN 500MG/ 250ML 250 ML IV SCH (10:00)
[2018-08-18] MEDS: ASPirin 81 mg TAB PO SCH (11:03)
[2018-08-18] MEDS: PANTOPRAZOLE 40 MG TAB PO SCH (11:03)
[2018-08-18] MEDS: DILTIAZEM HCL 120MG ER CAP PO SCH (11:04)
[2018-08-18] MEDS: Glucerna Carbsteady SHAKE Chocolate 8oz PO SCH ×2 (11:06→13:10)
--- NOTE | 2018-08-18 11:06 | NUR ---
Medications Eliquis medication held, due to no appt, or INR labs. Patients BUN 50, Cr 1.80. Addendum: 08/18/18 at 1112 by WENDY WASSERMAN RN RN Last lads for H&H on 08/16/2018, showed a decreased.
[2018-08-18 11:21] LABS: Protein, Urine 60.1 mg/dL (0.0-11.9)
[2018-08-18 13:00] VITALS: BP 131/73
[2018-08-18 16:04] VITALS: BP 131/73
[2018-08-18 17:00] VITALS: BP 130/68
--- NOTE | 2018-08-18 17:39 | NUR ---
Martini catheter dc'd Order to discontinue martini catheter. Martini dc'd with clean technique following deflation of balloon. Patient tolerated well with no complaints of pain. Continue care.
--- NOTE | 2018-08-18 18:00 | NUR ---
Discharge instructions given as ordered. Encourage to follow up with PMD as instructed. All questions and concerns addressed. Patient verbalized understanding. Medication reconciliation form completed and copy given to patient. Home medications held in Pharmacy returned to patient. IV removed with catheter intact, pressure dressing applied, martini catheter removed. Patient taken to vehicle via wheelchair with all personal belongings, accompanied by staff and family member. No distress noted at time of departure.
--- NOTE | 2018-08-20 07:40 | NUR ---
O/C note [facility] Primary RN called and stated pt's daughter wanted [facility]. Hospice packet faxed to [facility] by [facility] and pt accepted.
== END 2018-08-18 18:00 | disposition hospice, home (50) | DRG 871 ==
LOC: EDBD 17:54 → ER 18:01 → TELE 22:36 → TELE-EAST 08-16 16:58 → EAST 08-16 18:54
PROVIDERS: ADMIT Nurse Practitioner; ATTEND Family Medicine
PROC: 5A09457 Assistance with Respiratory Ventilation, 24-96 Consecutive Hours, Continuous Positive Airway Pressure (ICD-10-PCS; principal; 2018-08-15)
DX: A41.9 Sepsis, unspecified organism (principal); J18.9 Pneumonia, unspecified organism; I21.4 Non-ST elevation (NSTEMI) myocardial infarction; I50.33 Acute on chronic diastolic (congestive) heart failure; J96.21 Acute and chronic respiratory failure with hypoxia; N17.0 Acute kidney failure with tubular necrosis; J44.1 Chronic obstructive pulmonary disease with (acute) exacerbation; J44.0 Chronic obstructive pulmonary disease with (acute) lower respiratory infection; I13.0 Hypertensive heart and chronic kidney disease with heart failure and stage 1 through stage 4 chronic kidney disease, or unspecified chronic kidney disease; E11.21 Type 2 diabetes mellitus with diabetic nephropathy; E11.22 Type 2 diabetes mellitus with diabetic chronic kidney disease; E78.5 Hyperlipidemia, unspecified; F03.90 Unspecified dementia, unspecified severity, without behavioral disturbance, psychotic disturbance, mood disturbance, and anxiety; I25.10 Atherosclerotic heart disease of native coronary artery without angina pectoris; I48.91 Unspecified atrial fibrillation; K21.9 Gastro-esophageal reflux disease without esophagitis; M16.10 Unilateral primary osteoarthritis, unspecified hip; N18.9 Chronic kidney disease, unspecified; Z51.5 Encounter for palliative care; Z80.0 Family history of malignant neoplasm of digestive organs; Z80.3 Family history of malignant neoplasm of breast; Z82.49 Family history of ischemic heart disease and other diseases of the circulatory system; Z86.73 Personal history of transient ischemic attack (TIA), and cerebral infarction without residual deficits; Z85.3 Personal history of malignant neoplasm of breast; Z90.710 Acquired absence of both cervix and uterus; Z88.1 Allergy status to other antibiotic agents; Z88.2 Allergy status to sulfonamides
CPT/HCPCS: 36415; 36600; 71045; 73502; 76775; 80048; 80053; 80061; 81001; 82570; 82607; 82805; 82962; 83036; 83735; 83880; 84156; 84300; 84484; 85025; 85379; 87040; 92610; 93306; 94640; 94660; 96365; 96367; 96375; G0378; J0696; J1815; J2543